=== PATIENT | female | born 1935 | race Caucasian/White ===

== ENCOUNTER 2016-05-09 09:32 | Outpatient (CLI) | payer MEDICARE | END 2016-05-09 09:33 | disposition home or self-care (01) | DX: Z00.00 Encounter for general adult medical examination without abnormal findings (principal); E55.9 Vitamin D deficiency, unspecified; E78.5 Hyperlipidemia, unspecified ==

== ENCOUNTER 2016-06-07 10:53 | Outpatient (CLI) | payer MEDICARE | END 2016-06-07 10:54 | disposition home or self-care (01) | DX: N63 Unspecified lump in breast (principal); N64.4 Mastodynia | CPT/HCPCS: 76642; G0204 ==

== ENCOUNTER 2016-06-13 08:46 | Outpatient (CLI) | payer MEDICARE ==
[2016-06-13 11:56] VITALS: BP 188/75
[2016-06-13] MEDS ORDERED: BUFFERED LIDOCAINE 10 ML SYRINGE IU ONE (14:19)
[2016-06-13] MEDS ORDERED: BUPIVACAINE 0.5%-EPI 1:200000 PF 30 ML VIAL SUBQ ONE (14:19)
--- NOTE | 2016-06-14 08:46 | Ultrasound Report ---
ULTRASOUND-GUIDED CORE NEEDLE BIOPSY OF LEFT BREAST MASS AND NODULE: 06/13/2016 CLINICAL INDICATION: A 1.4 cm nodule and a 2.5 cm mass left upper outer quadrant. FINDINGS: Informed consent was obtained. Using standard aseptic technique, both 1% buffered lidocaine and Marcaine were injected into the left breast for local anesthesia. A small deandra was made in the skin with a #11 blade. Initially , the smaller nodule was targeted, and a 12-gauge Celero vacuum-assisted device was used to obtain three specimens. A Celero marker was then placed in the nodule under ultrasound guidance. Subsequently, the 2.5 cm mass was targeted, and a 12-gauge Celero vacuum- assisted device was used to obtain three specimens. A Celero marker was then placed into the biopsy cavity under ultrasound guidance. The patient was taken to a separate mammography machine, and a two view digital mammogram was performed, documenting the markers in the expected locations, and a small postbiopsy hematoma. The wound was dressed and ice applied. The patient was observed for approximately 15 minutes, then was discharged from [facility] in good condition following instructions on wound care and obtaining biopsy results. The tissue was sent for histologic analysis. IMPRESSION: ULTRASOUND-GUIDED BIOPSY OF LEFT BREAST MASS AND NODULE. AN ADDENDUM WILL BE MADE TO THIS REPORT WHEN PATHOLOGY IS REVIEWED TO ESTABLISH CONCORDANCE. JOB #: [id number] EXT JOB #: MTDD
--- NOTE | 2016-06-19 14:58 | Mammography Report ---
PT NAME: ALEXUS OLMEDO MR#: [id number] DEP CLI/DI AGE: 80 CI DT/TM: 06/13/1612/20/2016 PCP: ADELAIDA Juarez : 1935 ATT: ADELAIDA Juarez SEX: F ORD: Cristian Li [facility] EXAM: [id number] US/BXBC ([id number]) ULTRASOUND-GUIDED CORE NEEDLE BIOPSY OF LEFT BREAST MASS AND NODULE: 06/13/2016 CLINICAL INDICATION: A 1.4 cm nodule and a 2.5 cm mass left upper outer quadrant. FINDINGS: Informed consent was obtained. Using standard aseptic technique, both 1% buffered lidocaine and Marcaine were injected into the left breast for local anesthesia. A small deandra was made in the skin with a #11 blade. Initially , the smaller nodule was targeted, and a 12-gauge Celero vacuum-assisted device was used to obtain three specimens. A Celero marker was then placed in the nodule under ultrasound guidance. Subsequently, the 2.5 cm mass was targeted, and a 12-gauge Celero vacuum- assisted device was used to obtain three specimens. A Celero marker was then placed into the biopsy cavity under ultrasound guidance. The patient was taken to a separate mammography machine, and a two view digital mammogram was performed, documenting the markers in the expected locations, and a small postbiopsy hematoma. The wound was dressed and ice applied. The patient was observed for approximately 15 minutes, then was discharged from [facility] in good condition following instructions on wound care and obtaining biopsy results. The tissue was sent for histologic analysis. IMPRESSION: ULTRASOUND-GUIDED BIOPSY OF LEFT BREAST MASS AND NODULE. AN ADDENDUM WILL BE MADE TO THIS REPORT WHEN PATHOLOGY IS REVIEWED TO ESTABLISH CONCORDANCE. JOB #: [id number] EXT JOB #: Cigarette Examiner: Reading Radiologist: Sae Cali MD Releasing Radiologist: Sae Cali MD Released Date Time: 06/14/16910 <Electronically signed by Sae Cali MD> cc: ADELAIDA Juarez ADDENDUM ADDENDUM: ULTRASOUND-GUIDED CORE NEEDLE BIOPSY OF THE LEFT BREAST OF 06/13/2016 ADDENDUM: The procedure performed by Dr. Cali. Pathology reviewed by Dr. Cali. 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 These results are concordant with the imaging findings. RECOMMENDATION: SURGICAL FOLLOWUP FOR TREATMENT PLANNING. The patient has been scheduled to obtain results from ADELAIDA Rivzi on 06/19/2016 at 9:30 a.m. END OF ADDENDUM Addendum Cigarette Examiner: SHAI MAN
== END 2016-06-13 08:47 | disposition home or self-care (01) ==
LOC: DI 08:46
PROVIDERS: ATTEND Nurse Practitioner Family
DX: C50.412 Malignant neoplasm of upper-outer quadrant of left female breast (principal); Z17.0 Estrogen receptor positive status [ER+]
CPT/HCPCS: 19083; G0206; 88305; 88360; 88374

== ENCOUNTER 2016-06-29 10:21 | Outpatient (CLI) | payer MEDICARE | END 2016-06-29 10:22 | disposition home or self-care (01) | DX: C50.919 Malignant neoplasm of unspecified site of unspecified female breast (principal) ==

== ENCOUNTER 2016-07-02 08:46 | Outpatient (CLI) | payer MEDICARE ==
[2016-07-02] MEDS ORDERED: GADOBUTROL 10 MMOL/10 ML VIAL IVP ONE (09:52)
== END 2016-07-02 08:47 | disposition home or self-care (01) ==
DX: C50.412 Malignant neoplasm of upper-outer quadrant of left female breast (principal)
CPT/HCPCS: A9585; C8908

== ENCOUNTER 2016-07-09 11:54 | Day surgery (SDC) | payer MEDICARE ==
[2016-07-09] MEDS ORDERED: LACTATED RINGERS 1,000 ML IV ONE (12:34)
[2016-07-09] MEDS ORDERED: DEXAMETHASONE 4 MG/ML VIAL IVP ONE (16:23)
[2016-07-09] MEDS ORDERED: LIDOCAINE-MPF 2% 5 ML VIAL IM ONE (16:23)
[2016-07-09] MEDS ORDERED: MIDAZOLAM 2 MG/2 ML VIAL IVP ONE (16:23)
[2016-07-09] MEDS ORDERED: fentaNYL 100 MCG/2 ML VIAL IVP ONE (16:23)
[2016-07-09] MEDS ORDERED: ONDANSETRON 4 MG/2 ML VIAL IVP ONE (16:23)
[2016-07-09] MEDS ORDERED: PROPOFOL 200 MG/20 ML VIAL IVP ONE (16:23)
[2016-07-09] MEDS ORDERED: BUPIVACAINE 0.5% PF 30 ML VIAL INFIL ONE (16:42)
[2016-07-09] MEDS ORDERED: BUPIVACAINE 0.5%-EPI 1:200000 PF 30 ML VIAL SUBQ ONE (16:47)
[2016-07-09] MEDS ORDERED: BUFFERED LIDOCAINE 10 ML SYRINGE IU ONE (16:47)
[2016-07-09] MEDS: fentaNYL 100 MCG/2 ML VIAL ONE ×4 (17:15→17:29)
[2016-07-09] MEDS ORDERED: oxyCOD/ACETAMIN 5 MG/325 MG TABLET PO ONE (17:50)
== END 2016-07-09 11:55 | disposition home or self-care (01) ==
PROC: 0HBU0ZZ Excision of Left Breast, Open Approach (ICD-10-PCS; principal; 2016-07-09 14:30)
DX: C50.912 Malignant neoplasm of unspecified site of left female breast (principal); Z88.0 Allergy status to penicillin; Z88.2 Allergy status to sulfonamides; I10 Essential (primary) hypertension; E03.9 Hypothyroidism, unspecified; Z98.49 Cataract extraction status, unspecified eye; Z87.891 Personal history of nicotine dependence; Z90.49 Acquired absence of other specified parts of digestive tract; E66.9 Obesity, unspecified; Z68.39 Body mass index [BMI] 39.0-39.9, adult
CPT/HCPCS: 19281; 19301; 76098; A9270; J7120

== ENCOUNTER 2016-09-12 14:34 | Outpatient (CLI) | payer MEDICARE | END 2016-09-12 14:35 | disposition home or self-care (01) | DX: R31.0 Gross hematuria (principal) ==

== ENCOUNTER 2016-09-14 10:28 | Outpatient (CLI) | payer MEDICARE | END 2016-09-14 10:29 | disposition home or self-care (01) | DX: R31.0 Gross hematuria (principal) ==

== ENCOUNTER 2016-10-04 09:23 | Outpatient (CLI) | payer MEDICARE ==
[2016-10-04 17:12] LABS: BASOPHILS % (AUTO) 0.6 %; EOSINOPHILS # (AUTO) 0.1 10^3/uL (0.0-0.7); EOSINOPHILS % (AUTO) 1.7 %; HCT - HEMATOCRIT 39.9 % (37.0-47.0); HGB - HEMOGLOBIN 13.3 g/dL (12.0-16.0); LYMPHOCYTES # (AUTO) 1.3 10^3/uL (1.5-3.5); LYMPHOCYTES % (AUTO) 24.4 %; MEAN CORPUSCULAR HGB CONC 33.3 g/dL (32.0-36.0); MEAN CORPUSCULAR VOLUME 93.3 fL (81.0-99.0); MEAN PLATELET VOLUME 8.6 fL (7.9-10.8); MONOCYTES # (AUTO) 0.4 10^3/uL (0.0-1.0); MONOCYTES % (AUTO) 6.8 %; NEUTROPHILS # (AUTO) 3.6 10^3/uL (1.5-6.6); NEUTROPHILS % (AUTO) 66.5 %; NUCLEATED RED BLOOD CELLS AUTO 0.2 /100WBC; RED BLOOD COUNT 4.28 10^6/uL (4.20-5.40); RED CELL DISTRIBUTION WIDTH 13.6 % (12.0-15.0); UNCORRECTED WHITE BLOOD COUNT 5.4 x10^3/uL; WHITE BLOOD COUNT 5.4 x10^3/uL (4.8-10.8)
[2016-10-04 17:26] LABS: ALBUMIN/GLOBULIN RATIO 1.2 (1.0-2.2); BILIRUBIN,TOTAL 0.5 mg/dL (0.2-1.0); CALCIUM 9.3 mg/dL (8.5-10.3); CREATININE 0.9 mg/dL (0.4-1.0); POTASSIUM 3.4 mmol/L (3.5-5.0); URIC ACID 6.7 mg/dL (2.6-7.2)
== END 2016-10-04 09:24 | disposition home or self-care (01) ==
LOC: LAB.F 09:23
PROVIDERS: ATTEND Nurse Practitioner Family
DX: M10.9 Gout, unspecified (principal)
CPT/HCPCS: 36415; 80053; 84550; 85025

== ENCOUNTER 2016-11-07 07:17 | Outpatient (CLI) | payer MEDICARE | END 2016-11-07 07:18 | disposition home or self-care (01) | LOC: DI 07:17 | PROVIDERS: ATTEND Nurse Practitioner Family | DX: Z53.9 Procedure and treatment not carried out, unspecified reason (principal) ==

== ENCOUNTER 2016-12-24 10:40 | Outpatient (CLI) | payer MEDICARE ==
[2016-12-24 18:04] LABS: EOSINOPHILS # (AUTO) 0.1 10^3/uL (0.0-0.7); EOSINOPHILS % (AUTO) 1.6 %; HCT - HEMATOCRIT 42.5 % (37.0-47.0); HGB - HEMOGLOBIN 14.2 g/dL (12.0-16.0); LYMPHOCYTES # (AUTO) 1.9 10^3/uL (1.5-3.5); LYMPHOCYTES % (AUTO) 36.4 %; MEAN CORPUSCULAR HEMOGLOBIN 30.3 pg (27.0-31.0); MEAN CORPUSCULAR HGB CONC 33.3 g/dL (32.0-36.0); MEAN CORPUSCULAR VOLUME 90.9 fL (81.0-99.0); MEAN PLATELET VOLUME 8.7 fL (7.9-10.8); MONOCYTES # (AUTO) 0.4 10^3/uL (0.0-1.0); NEUTROPHILS # (AUTO) 2.8 10^3/uL (1.5-6.6); NUCLEATED RED BLOOD CELLS AUTO 0.1 /100WBC; RED BLOOD COUNT 4.67 10^6/uL (4.20-5.40); RED CELL DISTRIBUTION WIDTH 13.7 % (12.0-15.0); UNCORRECTED WHITE BLOOD COUNT 5.2 x10^3/uL; WHITE BLOOD COUNT 5.2 x10^3/uL (4.8-10.8)
[2016-12-24 19:09] LABS: ALBUMIN/GLOBULIN RATIO 1.3 (1.0-2.2); BILIRUBIN,TOTAL 0.8 mg/dL (0.2-1.0); BUN - BLOOD UREA NITROGEN 20 mg/dL (6-20); CALCIUM 9.5 mg/dL (8.5-10.3); CARBON DIOXIDE - CO2 28 mmol/L (21-32); CHLORIDE 106 mmol/L (101-111); CREATININE 0.9 mg/dL (0.4-1.0); GFR - MDRD 60 (>89); GLUCOSE 92 mg/dL (70-100); POTASSIUM 3.4 mmol/L (3.5-5.0); SODIUM 142 mmol/L (135-145); TOTAL PROTEIN 7.4 g/dL (6.7-8.2)
[2016-12-24 19:34] LABS: THYROID STIMULATING HORMONE < 0.08 uIU/mL (0.34-5.60)
== END 2016-12-24 10:41 | disposition home or self-care (01) ==
LOC: LAB.F 10:40
PROVIDERS: ATTEND Physician Assistant Medical
DX: I10 Essential (primary) hypertension (principal)
CPT/HCPCS: 36415; 80053; 84439; 84443; 84481; 85025

== ENCOUNTER → 2016-12-31 | Outpatient (CLI) | payer MEDICARE ==
[2016-12-31 11:03] LABS: ALBUMIN/GLOBULIN RATIO 1.2 (1.0-2.2); BILIRUBIN,TOTAL 0.8 mg/dL (0.2-1.0); CALCIUM 9.7 mg/dL (8.5-10.3); CREATININE 0.8 mg/dL (0.4-1.0); POTASSIUM 4.3 mmol/L (3.5-5.0)
== END ==
LOC: LAB.F 08:00
PROVIDERS: ATTEND Physician Assistant Medical
DX: E87.6 Hypokalemia (principal); Z79.899 Other long term (current) drug therapy
CPT/HCPCS: 36415; 80053; 82565

== ENCOUNTER 2017-02-18 08:00 | Outpatient (CLI) | payer MEDICARE | END 2017-02-18 08:01 | disposition home or self-care (01) | LOC: LAB.F 08:00 | PROVIDERS: ATTEND Physician Assistant Medical | DX: J11.1 Influenza due to unidentified influenza virus with other respiratory manifestations (principal) | CPT/HCPCS: 87275; 87276 ==

== ENCOUNTER 2017-04-30 08:47 | Outpatient (CLI) | payer MEDICARE ==
--- NOTE | 2017-04-30 17:47 | Mammography Report ---
DIAGNOSTIC BILATERAL DIGITAL MAMMOGRAM: 04/30/2017 CLINICAL INDICATION: History of left breast cancer status post lumpectomy. TECHNIQUE: Bilateral CC and MLO views, left true lateral and spot magnification views. COMPARISON: 07/09/2016, 06/13/2016, 06/07/2016, 02/12/2007. FINDINGS: The breasts again demonstrate scattered fibroglandular densities bilaterally. Coarse, typically benign calcifications are present. Small circumscribed nodules are stable bilaterally. Postoperative changes in the left upper outer quadrant are present, at the site of previously diagnosed breast cancer. No suspicious masses, clustered microcalcifications, or regions of architectural distortion are identified. IMPRESSION: Probable benign postoperative changes in the left breast. RECOMMENDATIONS: Diagnostic left mammogram in 6 months, to assure stability. BIRADS category 3 - Probable benign findings. STANDARD QUALIFYING STATEMENTS 1. This examination was reviewed with the aid of Computer-Aided Detection (CAD). 1. A negative x-ray report should not delay biopsy if a dominant or clinically suspicious mass are present. Consider surgical consultation if warranted. More than 5% of cancers are not identified by x-ray. 2. Dense breasts may obscure an underlying neoplasm. TD: 04/30/2017 18:36 MAGDA
== END 2017-04-30 08:48 | disposition home or self-care (01) ==
LOC: DI 08:47
PROVIDERS: ATTEND Internal Medicine Hematology & Oncology
DX: C50.412 Malignant neoplasm of upper-outer quadrant of left female breast (principal)
CPT/HCPCS: 77066

== ENCOUNTER 2017-10-14 12:37 | Outpatient (CLI) | payer MEDICARE ==
--- NOTE | 2017-10-14 15:45 | Mammography Report ---
DIAGNOSTIC LEFT MAMMOGRAM: 10/14/2017 CLINICAL INDICATION: Followup of left breast cancer, status post lumpectomy. COMPARISON: 04/30/2017, 07/09/2016, 06/13/2016, 06/07/2016, 02/12/2007. TECHNIQUE: Left CC, MLO, true lateral, spot magnification views. FINDINGS The left breast again demonstrates scattered fibroglandular densities. Postoperative and posttreatment changes are noted. Coarse and punctate, typically benign calcifications are present. No suspicious masses, clustered microcalcifications , or regions of architectural distortion are identified. IMPRESSION: PROBABLE BENIGN POSTOPERATIVE AND POSTTREATMENT CHANGES. RECOMMENDATIONS: Diagnostic bilateral mammogram in 6 months, to assure stability. BIRADS CATEGORY 3 - PROBABLE BENIGN FINDINGS. STANDARD QUALIFYING STATEMENTS 1. This examination was reviewed with the aid of Computer-Aided Detection ( CAD). 2. A negative or benign imaging report should not delay biopsy if clinically suspicious findings are present. Consider surgical consultation if warranted. More than 5% of cancers are not identified by imaging. 3. Dense breasts may obscure an underlying neoplasm. TD: 10/14/2017 14:08 MTDBella
== END 2017-10-14 12:38 | disposition home or self-care (01) ==
LOC: DI 12:37
PROVIDERS: ATTEND Internal Medicine Hematology & Oncology
DX: C50.412 Malignant neoplasm of upper-outer quadrant of left female breast (principal)

== ENCOUNTER 2018-07-08 13:35 | Outpatient (CLI) | payer MEDICARE ==
--- NOTE | 2018-07-09 10:42 | XRAY Report ---
Reason: ANKLE JOINT PAIN, RIGHT Procedure Date: 07/08/2018 Accession Number: [id number] / [id number] Procedure: XR - Ankle 3 View RT CPT Code: FULL RESULT: EXAM: RIGHT ANKLE RADIOGRAPHY EXAM DATE: 07/08/2018 02:26 PM. CLINICAL HISTORY: Ankle joint pain, right. COMPARISON: None. TECHNIQUE: 3 views. FINDINGS: Bones: Posterior calcaneal spurring, mild inferior calcaneal spurring and os trigonum are noted. No fracture is seen. Joints: The ankle mortise is preserved. No definite joint effusion is seen. Soft Tissues: There is soft tissue swelling about the ankle. IMPRESSION: Soft tissue swelling without fracture or dislocation identified. RADIA
== END 2018-07-08 13:36 | disposition home or self-care (01) ==
LOC: DI 13:35
PROVIDERS: ATTEND Physician Assistant Medical
DX: M25.571 Pain in right ankle and joints of right foot (principal); R22.41 Localized swelling, mass and lump, right lower limb

== ENCOUNTER 2018-07-15 13:48 | Outpatient (CLI) | payer MEDICARE ==
[2018-07-17 08:48] LABS: ALBUMIN/GLOBULIN RATIO 1.1 (1.0-2.2); BILIRUBIN,TOTAL 0.9 mg/dL (0.2-1.0); CALCIUM 9.4 mg/dL (8.5-10.3); CREATININE 0.8 mg/dL (0.4-1.0); TOTAL PROTEIN 7.8 g/dL (6.7-8.2)
== END 2018-07-15 13:49 | disposition home or self-care (01) ==
LOC: LAB.F 13:48
PROVIDERS: ATTEND Physician Assistant Medical
DX: Z51.81 Encounter for therapeutic drug level monitoring (principal); E03.9 Hypothyroidism, unspecified
CPT/HCPCS: 36415; 80053; 84443

== ENCOUNTER 2018-08-04 08:55 | Outpatient (CLI) | payer MEDICARE ==
--- NOTE | 2018-08-04 13:11 | Mammography Report ---
Reason: 6 MO F/U - LT BREAST CA Procedure Date: 08/04/2018 Accession Number: [id number] / [id number] Procedure: FRANCISCO - Diagnostic Dig Bilat CPT Code: FULL RESULT: EXAM: Diagnostic Dig Bilat DATE: 08/04/2018 10:07 AM CLINICAL HISTORY: Personal history of treated left breast cancer in July 2016 status post lumpectomy for post lumpectomy surveillance. No reported family history of breast cancer. TECHNIQUE: (B) - Bilateral Bilateral CC and MLO views were obtained. COMPARISON: 10/14/2017 through 06/07/2016 FINDINGS: Left breast: There are stable post lumpectomy changes from the posterior upper outer breast. There is stable moderate skin thickening and mild trabecular thickening/edema since the most recent comparison exam, consistent with post treatment changes. No suspicious masses, calcifications or areas of nonoperative distortion. Right breast: No suspicious masses, clustered microcalcifications, or regions of architectural distortion are identified. PARENCHYMAL PATTERN: (A) - The breasts demonstrate scattered fibroglandular densities bilaterally. IMPRESSION: Left breast: Expected post lumpectomy and post treatment changes under postlumpectomy surveillance protocol. Benign. BI-RADS Category 2. Recommend diagnostic mammography in one year to continue surveillance. This timing will coincide with contralateral screening. Right breast: Negative. BI-RADS Category 1. Recommend annual screening mammography. RECOMMENDATION: (12MOS) - Recommend 12 month follow-up exam. BI-RADS CATEGORY: (2) - Benign Findings STANDARD QUALIFYING STATEMENTS: 1. This examination was not reviewed with the aid of Computer-Aided Detection (CAD). 2. A negative or benign imaging report should not preclude biopsy if clinically suspicious findings are present. 3. Dense breasts may obscure an underlying neoplasm. 4. This examination was reviewed with the aid of 3D breast imaging (tomosynthesis).
== END 2018-08-04 08:56 | disposition home or self-care (01) ==
LOC: DI 08:55
PROVIDERS: ATTEND Internal Medicine Hematology & Oncology
DX: R92.8 Other abnormal and inconclusive findings on diagnostic imaging of breast (principal); Z85.3 Personal history of malignant neoplasm of breast
CPT/HCPCS: 77062; 77066

== ENCOUNTER 2018-09-10 12:29 | Emergency (ER) | payer MEDICARE ==
[2018-09-10 12:45] VITALS: BP 199/99
--- NOTE | 2018-09-10 13:00 | ED Physician Documentation ---
History of Present Illness - Stated complaint Stated Complaint: CHEST DISCOMFORT/RAPID HR - Chief complaint Chief Complaint: Cardiac - History obtained from History obtained from: Patient - History of Present Illness Timing: Yesterday Pain level max: 2 Pain level now: 1 - Additonal information Additional information: states dull ache in chest since yesterday and occasionally feels her heart pounding. Worse lying down. nothing makes it better. No dyspnea. no vomiting. No dizziness. 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: section, Tubal ligation HEENT: Cataracts - Present Medications Home Medications: Ambulatory Orders Medication Instructions Recorded Confirmed Cholecalciferol [Vitamin D3] 5,000 unit PO DAILY 07/09/16 09/10/18 hydroCHLOROthiazide 12.5 mg PO DAILY 07/09/16 09/10/18 [Hydrochlorothiazide] Losartan [Cozaar] 50 mg PO DAILY 08/19/18 09/10/18 Thyroid,Pork [[place] Thyroid] 60 mg PO DAILY 08/19/18 09/10/18 Metoprolol Succinate 25 mg PO DAILY #30 tab.er.24h 09/10/18 - Allergies Allergies/Adverse Reactions: Allergies Allergy/AdvReac Type Severity Reaction Status Date / Time Penicillins Allergy Rash Verified 09/10/18 12:45 Sulfa (Sulfonamide Allergy Unknown Verified 09/10/18 12:45 Antibiotics) PD ED PE NORMAL - Vitals Vital signs reviewed: Yes - General General: Alert and oriented X 3, No acute distress - HEENT HEENT: Moist mucous membranes - Neck Neck: Supple, no meningeal sign - Cardiac Cardiac: RRR, Strong equal pulses, Other (III/ holosystolic murmur) - Respiratory Respiratory: No respiratory distress, Clear bilaterally - Abdomen Abdomen: Soft, Non tender, Non distended - Derm Derm: Warm and dry - Extremities Extremities: No edema - Neuro Neuro: Alert and oriented X 3 Results - Vitals Vitals: Vital Signs - 24 hr 09/10/18 12:43 Temperature 36.4 C L Heart Rate 106 H Respiratory 23 Rate Blood Pressure 199/99 H O2 Saturation 98 Oxygen O2 Source Room air - EKG (time done) 1235 Rate: Rate (enter#) (93) Rhythm: NSR [place]: Anterior hemiblock (LAFB) Intervals: Other (short [place]) QRS: Normal Ischemia: Normal ST segments Compare to prior EKG: Old EKG unavailable - Labs Labs: Laboratory Tests 09/10/18 09/10/18 09/10/18 12:35 12:45 12:45 WBC 7.5 RBC 4.33 Hgb 13.4 Hct 40.0 MCV 92.4 MCH 30.9 MCHC 33.4 RDW 14.1 Plt Count 216 MPV 8.0 Neut # (Auto) 5.0 Lymph # (Auto) 1.7 Dade # (Auto) 0.6 Eos # (Auto) 0.1 Baso # (Auto) 0.1 Absolute Nucleated RBC 0.00 Nucleated RBC % 0.1 Sodium 138 Potassium 3.8 Chloride 101 Carbon Dioxide 28 Anion Gap 9.0 BUN 23 H Creatinine 0.9 Estimated GFR (MDRD) 60 L Glucose 116 H Calcium 9.5 Total Bilirubin 0.6 AST 23 ALT 19 Alkaline Phosphatase 84 Troponin I Total Protein 7.7 Albumin 3.7 Globulin 4.0 Albumin/Globulin Ratio 0.9 L Lipase 61 H Urine Color YELLOW Urine Clarity CLEAR Urine pH 5.5 Ur Specific [place] <=1.005 Urine Protein NEGATIVE Urine Glucose (UA) NEGATIVE Urine Ketones NEGATIVE Urine Occult Blood TRACE-INTA Urine Nitrite NEGATIVE Urine Bilirubin NEGATIVE Urine Urobilinogen 0.2 (NORMAL) Ur Leukocyte Esterase NEGATIVE Ur Microscopic Review NOT INDICATED Urine Culture Comments NOT INDICATED 09/10/18 12:45 WBC RBC Hgb Hct MCV MCH MCHC RDW Plt Count MPV Neut # (Auto) Lymph # (Auto) Dade # (Auto) Eos # (Auto) Baso # (Auto) Absolute Nucleated RBC Nucleated RBC % Sodium Potassium Chloride Carbon Dioxide Anion Gap BUN Creatinine Estimated GFR (MDRD) Glucose Calcium Total Bilirubin AST ALT Alkaline Phosphatase Troponin I < 0.04 Total Protein Albumin Globulin Albumin/Globulin Ratio Lipase Urine Color Urine Clarity Urine pH Ur Specific [place] Urine Protein Urine Glucose (UA) Urine Ketones Urine Occult Blood Urine Nitrite Urine Bilirubin Urine Urobilinogen Ur Leukocyte Esterase Ur Microscopic Review Urine Culture Comments - Rads (name of study) cxr Radiology: Prelim report reviewed, EMP read contemporaneously, See rad report (Borderline cardiomegaly. ) PD MEDICAL DECISION MAKING - ED course Complexity details: reviewed results, re-evaluated patient, considered differential (No ST elevation GA, no aortic dissection, no PE, no tension pneumothorax, no aortic aneurysm), d/w patient, d/w family ED course: 83-year-old female with bigeminy on the monitor when she is symptomatic. This lasts for a few beats and then resolves. No acute laboratory findings. Will place on a low-dose beta-live for home if her symptoms continue. She is well-appearing, nontoxic. Elevated blood pressure here, should tolerate a low- dose beta-live well. No evidence of acute coronary syndrome. Patient counseled regarding signs and symptoms for which I believe and urgent re-evalu ation would be necessary. Patient with good understanding of and agreement to plan and is comfortable going home at this time This document was made in part using voice recognition software. While efforts are made to proofread this document, sound alike and grammatical errors may occur. Departure - Departure Disposition: Home, Self Care Clinical Impression: PVC (premature ventricular contraction), Bigeminy Condition: Good Instructions: Premature Ventricular Contract About Follow-Up: Susan Johnson PA-C [Primary Care Provider] - Within 1 week Prescriptions: Metoprolol Succinate 25 mg PO DAILY #30 tab.er.24h Comments: Return if you worsen. Follow up with your doctor for further care. If this continues, you can start the metoprolol. You are having premature ventricular contractions and occasional bigeminy.
[2018-09-10 13:04] LABS: BASOPHILS # (AUTO) 0.1 10^3/uL (0.0-0.1); BASOPHILS % (AUTO) 0.9 %; EOSINOPHILS # (AUTO) 0.1 10^3/uL (0.0-0.7); EOSINOPHILS % (AUTO) 1.8 %; HGB - HEMOGLOBIN 13.4 g/dL (12.0-16.0); LYMPHOCYTES # (AUTO) 1.7 10^3/uL (1.5-3.5); LYMPHOCYTES % (AUTO) 23.1 %; MEAN CORPUSCULAR HEMOGLOBIN 30.9 pg (27.0-31.0); MEAN CORPUSCULAR HGB CONC 33.4 g/dL (32.0-36.0); MEAN CORPUSCULAR VOLUME 92.4 fL (81.0-99.0); MONOCYTES # (AUTO) 0.6 10^3/uL (0.0-1.0); MONOCYTES % (AUTO) 7.8 %; NEUTROPHILS % (AUTO) 66.4 %; PLT - PLATELET COUNT 216 10^3/uL (130-450); RED BLOOD COUNT 4.33 10^6/uL (4.20-5.40); RED CELL DISTRIBUTION WIDTH 14.1 % (12.0-15.0); WHITE BLOOD COUNT 7.5 x10^3/uL (4.8-10.8)
[2018-09-10 13:12] LABS: ALBUMIN 3.7 g/dL (3.2-5.5); ALBUMIN/GLOBULIN RATIO 0.9 (1.0-2.2); BILIRUBIN,TOTAL 0.6 mg/dL (0.2-1.0); CALCIUM 9.5 mg/dL (8.5-10.3); CREATININE 0.9 mg/dL (0.4-1.0); TOTAL PROTEIN 7.7 g/dL (6.7-8.2)
[2018-09-10 13:15] LABS: BILIRUBIN,URINE NEGATIVE (NEGATIVE); GLUCOSE, URINE (UA) NEGATIVE (NEGATIVE); KETONES,URINE (UA) NEGATIVE (NEGATIVE); LEUKOCYTE ESTERASE, URINE NEGATIVE (NEGATIVE); NITRITE,URINE NEGATIVE (NEGATIVE); OCCULT BLOOD,URINE TRACE-INTA (NEGATIVE); PH,URINE 5.5 PH (5.0-7.5); PROTEIN,URINE NEGATIVE (NEGATIVE); UROBILINOGEN,URINE 0.2 (NORMAL) E.U./dL (NORMAL)
[2018-09-10 13:16] LABS: CLARITY,URINE CLEAR (CLEAR)
--- NOTE | 2018-09-10 13:23 | XRAY Report ---
Reason: Chest Pain Procedure Date: 09/10/2018 Accession Number: [id number] / [id number] Procedure: XR - Chest 1 View X-Ray CPT Code: 40507 FULL RESULT: EXAM: CHEST RADIOGRAPHY EXAM DATE: 09/10/2018 12:58 PM. CLINICAL HISTORY: Chest pain and palpitations since yesterday. COMPARISON: 06/23/2015. TECHNIQUE: 1 view. FINDINGS: Lungs/Pleura: No focal opacities evident. No pleural effusion. No pneumothorax. Mediastinum: New borderline cardiomegaly. No mediastinal shift. Other: None. IMPRESSION: Borderline cardiomegaly. RADIA
== END 2018-09-10 14:10 | disposition home or self-care (01) ==
LOC: ED 12:29
DX: I49.3 Ventricular premature depolarization (principal); R00.8 Other abnormalities of heart beat; I44.4 Left anterior fascicular block; I10 Essential (primary) hypertension; E03.9 Hypothyroidism, unspecified
CPT/HCPCS: 36415; 71045; 80053; 81001; 81003; 83690; 84484; 85025; 87086; 93005; 99283; 99284

== ENCOUNTER 2018-09-15 10:40 | Outpatient (CLI) | payer MEDICARE ==
[2018-09-15 18:10] LABS: THYROID STIMULATING HORMONE 3.28 uIU/mL (0.34-5.60)
[2018-09-15 18:12] LABS: FREE T4 (FREE THYROXINE) 0.75 ng/dL (0.58-1.64)
== END 2018-09-15 10:41 | disposition home or self-care (01) ==
LOC: LAB.F 10:40
PROVIDERS: ATTEND Physician Assistant Medical
DX: E03.9 Hypothyroidism, unspecified (principal)
CPT/HCPCS: 36415; 84439; 84443; 84481

== ENCOUNTER 2018-10-24 10:27 | Outpatient (CLI) | payer MEDICARE | END 2018-10-24 10:28 | disposition home or self-care (01) | LOC: DI 10:27 | PROVIDERS: ATTEND Internal Medicine Cardiovascular Disease | DX: I49.3 Ventricular premature depolarization (principal); I11.9 Hypertensive heart disease without heart failure | CPT/HCPCS: 93306 ==

== ENCOUNTER 2018-11-24 11:02 | Outpatient (CLI) | payer MEDICARE | END 2018-11-24 11:03 | disposition home or self-care (01) | LOC: LAB.S 11:02 | PROVIDERS: ATTEND Physician Assistant Medical | DX: E03.9 Hypothyroidism, unspecified (principal) | CPT/HCPCS: 84443 ==

== ENCOUNTER 2019-02-09 16:49 | Emergency (ER) | payer MEDICARE ==
[2019-02-09 16:57] VITALS: BP 153/107
--- NOTE | 2019-02-09 17:33 | ED Physician Documentation ---
PD HPI ANIMAL BITE - Stated complaint Stated Complaint: DOG SCRATCH RT HAND - Chief complaint Chief Complaint: Laceration - History obtained from History obtained from: Patient, Family - History of Present Illness Location of injury(ies): Right hand (dorsum of the hand, laceration from dog scratch that had just gotten anxious.) Details of the event: Dog, Scratch, Pet animal, Immunized, Provoked (dog was playing and wanted attention) Timing - onset: Today Timing - details: Abrupt onset Improved by: Rest Worsened by: Palpating. 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 HEENT: Cataracts - Present Medications Home Medications: Ambulatory Orders Medication Instructions Recorded Confirmed Cholecalciferol [Vitamin D3] 5,000 unit PO DAILY 07/09/16 11/25/18 hydroCHLOROthiazide 12.5 mg PO DAILY 07/09/16 11/25/18 [Hydrochlorothiazide] Losartan [Cozaar] 50 mg PO DAILY 08/19/18 11/25/18 Metoprolol Succinate 25 mg PO DAILY #30 tab.er.24h 09/10/18 11/25/18 Thyroid,Pork [Nature-Throid] 60 mg PO DAILY 11/25/18 11/25/18 - Allergies Allergies/Adverse Reactions: Allergies Allergy/AdvReac Type Severity Reaction Status Date / Time Penicillins Allergy Rash Verified 02/09/19 16:54 Sulfa (Sulfonamide Allergy Unknown Verified 02/09/19 16:54 Antibiotics) - Social History Does the pt smoke?: No Smoking Status: Never smoker Does the pt drink ETOH?: No Does the pt have substance abuse?: No PD ED PE NORMAL - Vitals Vital signs reviewed: Yes - General General: Alert and oriented X 3, No acute distress, Well developed/nourished - Derm Derm: Normal color, Warm and dry - Extremities Extremities: Other (dorsum right hand with v-shaped lac 2 cm down to fatty tissue, but no deep structures uncovered. No FB. ) - Neuro Neuro: Alert and oriented X 3, No motor deficit, No sensory deficit, Normal speech Results - Vitals Vitals: Oxygen O2 Source Room air Procedures - Laceration (location) right dorsum hand Length in cm: 2 Wound type: Flap, Into subcut fat, Clean. No: Into muscle Neurovascular status: Sensory intact, Motor intact, Vascular intact Tendon involvement: Tendon intact Anesthesia: Lidocaine 1% with epi Wound Preparation: Irrigated copiously NS Skin layer closure: Nylon, Running, Size #-0 - enter number (4) Other: Patient tolerated well, No complications, Neurovascular intact, Dressing applied, Tetanus UTD Complexity: Simple Departure - Departure Disposition: 01 Home, Self Care Clinical Impression: Dog scratch Hand laceration Qualifiers: Encounter type: initial encounter Foreign body presence: without foreign body Laterality: right Qualified Code(s): S61.411A - Laceration without foreign body of right hand, initial encounter Condition: Stable Record reviewed to determine appropriate education?: Yes Instructions: ED Laceration Hand Follow-Up: WESTON COLINDRES MD [Primary Care Provider] - Comments: It is okay to wash and shower. Clean off the wound twice a day with soap and water, or peroxide and water. Apply some antibiotic ointment to it to keep it moist. Also to watch for signs of infection such as purulence, redness or increasing pain. Return to your primary care or the ER at the specified time for suture removal. Suture removal 8 to 10 days. Tylenol or ibuprofen if needed for pains. Regular activity of the hand is okay. Discharge Date/Time: 02/09/19 18:20
== END 2019-02-09 18:20 | disposition home or self-care (01) ==
LOC: ED 16:49
DX: S61.411A Laceration without foreign body of right hand, initial encounter (principal); W54.8XXA Other contact with dog, initial encounter; I10 Essential (primary) hypertension
CPT/HCPCS: 12001; 99282

== ENCOUNTER 2020-05-15 13:00 | Outpatient (CLI) | payer MEDICARE ==
[2020-05-15 18:10] LABS: CREATININE 0.9 mg/dL (0.4-1.0); POTASSIUM 3.8 mmol/L (3.5-5.0)
[2020-05-15 18:13] LABS: BILIRUBIN,URINE NEGATIVE (NEGATIVE); GLUCOSE, URINE (UA) NEGATIVE (NEGATIVE); KETONES,URINE (UA) NEGATIVE (NEGATIVE); LEUKOCYTE ESTERASE, URINE NEGATIVE (NEGATIVE); NITRITE,URINE NEGATIVE (NEGATIVE); OCCULT BLOOD,URINE LARGE (NEGATIVE); PROTEIN,URINE NEGATIVE (NEGATIVE); UROBILINOGEN,URINE 0.2 (NORMAL) E.U./dL (NORMAL)
[2020-05-15 18:18] LABS: CLARITY,URINE CLEAR (CLEAR)
[2020-05-15 19:30] LABS: WBC,URINE 0-3 /HPF (0-5)
[2020-05-15 19:31] LABS: BACTERIA,URINE Moderate /HPF (None Seen); SQUAMOUS EPITHELIAL CELL,UR MANY Squamous (<= Few)
== END 2020-05-15 13:01 | disposition home or self-care (01) ==
LOC: LAB.S 13:00
PROVIDERS: ATTEND Family Medicine
DX: R31.0 Gross hematuria (principal); Z51.81 Encounter for therapeutic drug level monitoring
CPT/HCPCS: 36415; 81001; 82565; 84132; 84295; 84443; 87086

== ENCOUNTER 2020-05-23 09:47 | Outpatient (CLI) | payer MEDICARE ==
--- NOTE | 2020-05-24 09:42 | Mammography Report ---
BILATERAL DIGITAL DIAGNOSTIC MAMMOGRAM 3D/2D: 05/23/2020 CLINICAL: Post left lumpectomy. Comparison is made to exams dated: 08/04/2018 mammogram, 10/14/2017 mammogram, 04/30/2017 mammogram, an d 07/09/2016 mammogram - [facility]. There are scattered fibroglandular elements in both breasts. The left breast has post-operative findings. There is diffuse skin thickening of the left breast dee dee t is more prominent. There is diffuse increased breast parenchymal trabecular thickening. There also are diffuse calcifications in the left breast that are not significantly changed. There is a new oval equal density lymph node with uniform cortical thickening in the left axillary t ail. No other significant masses, calcifications, or other findings are seen in either breast. IMPRESSION: INCOMPLETE: NEEDS ADDITIONAL IMAGING EVALUATION The new oval equal density thickened axillary lymph node as well as diffuse skin and trabecular thick ening of the left breast with uniform cortical thickening is indeterminate. An ultrasound is recommended for further evaluation and is scheduled to immediately follow this exami nation. This exam was interpreted at Station ID: [id number]. NOTE: For mammograms, a report in lay terms will be sent to the patient. Approximately 15% of breast malignancies will not be visualized mammographically. In the management of a palpable breast mass, a negative mammogram must not discourage biopsy of a clinically suspicious lesion. Electronically Signed By: Berny Cobos M.D. aty/:05/23/2020 12:51:15 ACR BI-RADS Category 0: Incomplete 3340F PARENCHYMAL PATTERN: (A) - The breast(s) demonstrate(s) scattered fibroglandular densities. BI-RADS CATEGORY: (0) - 0 Ultrasound [id number] Immediate follow-up LATERALITY: (L)
--- NOTE | 2020-05-24 09:42 | Ultrasound Report ---
LIMITED ULTRASOUND OF LEFT BREAST: 05/23/2020 CLINICAL: Post left lumpectomy. Comparison is made to exams dated: 08/04/2018 mammogram, 10/14/2017 mammogram, 04/30/2017 mammogram, 07/09/2016 mammogram, 07/02/2016 breast MRI, and 06/13/2016 ultrasound - [facility]. Color flow and real-time ultrasound of the left breast four quadrants and retroareolar regions were performed. Bajwa scale images of the real-time examination were reviewed. There is diffuse skin thickening of the left breast with moderate subcutaneous soft tissue edema. The re is no focal fluid collection or suspicious mass lesion. There is a 0.8 cm x 0.4 cm x 0.7 cm irregular mass in the left axillary tail. This irregular mass is hypoechoic with an echogenic boundary. This correlates with mammography findings. Color flow imagi ng demonstrates that there is an adjacent vascularity. There also are multiple irregular, enlarged lymph nodes with eccentric cortical thickening in the lef t axillary tail. These irregular lymph nodes are hypoechoic. Color flow imaging demonstrates that t here is vascularity present. IMPRESSION: SUSPICIOUS OF MALIGNANCY The 0.8 cm x 0.4 cm x 0.7 cm irregular mass with apparent echogenic halo in the left axillary tail i s suspicious of malignancy. An ultrasound guided biopsy is recommended. The multiple enlarged, irregular lymph nodes with eccentric cortical thickening in the left axillary tail are consistent with possible lymphadenopathy, and are suspicious of malignancy. An ultrasound g uided biopsy is recommended. Findings and recommendations were discussed with the patient during today's examination by Dr. Hurst on. This exam was interpreted at Station ID: [id number]. Electronically Signed By: Berny Cobos M.D. aty/:05/24/2020 09:39:06 Ultrasound BI-RADS: 4 Suspicious for malignancy BI-RADS CATEGORY: (4) - 4 RECOMMENDATION: (ADDMAM) - Recommend additional mammographic views. no recall LATERALITY: (B)
== END 2020-05-23 09:48 | disposition home or self-care (01) ==
LOC: DI 09:47
PROVIDERS: ATTEND Internal Medicine Hematology & Oncology
DX: Z08 Encounter for follow-up examination after completed treatment for malignant neoplasm (principal); R92.8 Other abnormal and inconclusive findings on diagnostic imaging of breast

== ENCOUNTER 2020-05-31 12:32 | Outpatient (CLI) | payer MEDICARE ==
[~2020-05-31 12:32] MED LIST: BUFFERED LIDOCAINE 10 ML SYRINGE ONE
[2020-05-31] MEDS: BUFFERED LIDOCAINE 10 ML SYRINGE IU ONE ×2 (15:04→15:05)
--- NOTE | 2020-06-02 09:01 | Mammography Report ---
UNILATERAL LEFT DIGITAL DIAGNOSTIC MAMMOGRAM 3D/2D: 05/31/2020 CLINICAL: Post left breast ultrasound biopsy clip placement imaging. Comparison is made to exams dated: 05/23/2020 mammogram, 08/04/2018 mammogram, 10/14/2017 mammogram, and 04/30/2017 mammogram - [facility]. There are scattered fibroglandular elements in left breast. There is a marker clip in the appropriate position in the left axillary tail. The biopsy marker for left axillary lymph node is not visualized in the field of view. IMPRESSION: POST PROCEDURE MAMMOGRAM FOR MARKER PLACEMENT There was a successful marker clip placement in the left axillary tail mass. Biopsy marker for left a xillary lymph node biopsy is not visualized in the field of view. This exam was interpreted at Station ID: [id number]. NOTE: For mammograms, a report in lay terms will be sent to the patient. Approximately 15% of breast malignancies will not be visualized mammographically. In the management of a palpable breast mass, a negative mammogram must not discourage biopsy of a clinically suspicious lesion. Electronically Signed By: Berny Cobos M.D. aty/:05/31/2020 19:36:49 ACR BI-RADS Category Post-procedure mammogram for marker placement PARENCHYMAL PATTERN: (A) - The breast(s) demonstrate(s) scattered fibroglandular densities. BI-RADS CATEGORY: () - Unspecified - other recall n/a LATERALITY: (B)
--- NOTE | 2020-06-06 11:12 | Ultrasound Report ---
ULTRASOUND GUIDED BIOPSY LEFT BREAST USING VACUUM DEVICE WITH MARKING DEVICE INSERTED AND POST DIGITA L MAMMOGRAPHIC IMAGIN05/31/2020 CLINICAL: Left axillary node biopsy. PATIENT CONSENT: Risks (minor bleeding, infection, vasovagal reaction and repeat procedure), benefits and alternatives were explained to the patient and written informed consent was obtained. Correlation is made to exams dated: 05/31/2020 mammogram, 05/23/2020 ultrasound, 05/23/2020 mammogram, 08/04/2018 mammogram, 10/14/2017 mammogram, and 04/30/2017 mammogram - [facility]. An ultrasound guided biopsy using real-time ultrasound was performed for the 0.8 cm x 0.4 cm x 0.7 cm mass located in the left axillary tail. This was described on the previous ultrasound report. The skin was prepped in the usual manner. Local anesthetic was administered to the access site. A s kin deandra was made in the breast. The abnormality was approached from the lateral aspect. A 12 gauge biopsy needle was placed adjacent to the abnormality under ultrasound guidance. Once the needle was documented to be in the correct location, three specimens were obtained using the Mammotome biopsy s ystem. A clip was inserted into the biopsy cavity. A skin closure strip and a sterile dressing were applied to the access site. Post procedure digital mammographic imaging demonstrates the location d evice at the targeted area and partial removal of the abnormality. The specimens were sent to the [facility] for pathological analysis. IMPRESSION: ULTRASOUND GUIDED BIOPSY MALIGNANT Ultrasound guided biopsy of the 0.8 cm x 0.4 cm x 0.7 cm mass in the left axillary tail was successfu l with no apparent post procedure complications. Pathology demonstrates invasive ductal carcinoma. Pathology results are concordant with imaging findi ngs. A surgical/oncologic consultation is recommended. This exam was interpreted at Station ID: [id number]. Yves Sahu M.D., jr,slc/:06/06/2020 10:46:46 BI-RADS CATEGORY: () - Unspecified - other recall n/a LATERALITY: (B)
--- NOTE | 2020-06-06 11:12 | Ultrasound Report ---
ULTRASOUND GUIDED BIOPSY LEFT BREAST: 05/31/2020 CLINICAL: Left axillary node biopsy. PATIENT CONSENT: Risks (minor bleeding, infection, vasovagal reaction and repeat procedure), benefits and alternatives were explained to the patient and written informed consent was obtained. Correlation is made to exams dated: 05/31/2020 ultrasound biopsy, 05/23/2020 ultrasound, 05/23/2020 [facility] mogram, 08/04/2018 mammogram, 05/31/2020 mammogram, and 10/14/2017 mammogram - [facility]. An ultrasound guided biopsy using real-time ultrasound was performed for the lymph node located in th e left axillary tail. This was described on the previous ultrasound report. The skin was prepped in the usual manner. Local anesthetic was administered to the access site. A s kin deandra was made in the breast. The abnormality was approached from the lateral aspect. A 12 gauge biopsy needle was placed adjacent to the abnormality under ultrasound guidance. Once the needle was documented to be in the correct location, three specimens were obtained using a BARD biopsy device. A skin closure strip and a sterile dressing were applied to the access site. Post procedure imaging demonstrates the clip at the targeted area. The specimens were sent to the laboratory for pathologi lisa analysis. IMPRESSION: ULTRASOUND GUIDED BIOPSY MALIGNANT Ultrasound guided biopsy of the lymph node in the left axilla was successful with no apparent post pr ocedure complications. Pathology demonstrates invasive ductal carcinoma. Pathology results are concordant with imaging findi ngs. A surgical/oncologic consultation is recommended. This exam was interpreted at Station ID: [id number]. Yves Sahu M.D., jr,slc/:06/06/2020 10:47:59 BI-RADS CATEGORY: () - Unspecified - other recall n/a LATERALITY: (B)
== END 2020-05-31 12:33 | disposition home or self-care (01) ==
LOC: DI 12:32
PROVIDERS: ATTEND Internal Medicine Hematology & Oncology
DX: C96.9 Malignant neoplasm of lymphoid, hematopoietic and related tissue, unspecified (principal); C50.612 Malignant neoplasm of axillary tail of left female breast; Z17.0 Estrogen receptor positive status [ER+]
CPT/HCPCS: 19083; 38505

== ENCOUNTER 2020-07-17 08:00 | Outpatient (CLI) | payer MEDICARE | END 2020-07-17 23:59 | disposition home or self-care (01) | LOC: LAB.R 08:00 | PROVIDERS: ATTEND Physician Assistant Medical | DX: R21 Rash and other nonspecific skin eruption (principal); Z20.822 Contact with and (suspected) exposure to COVID-19 ==

== ENCOUNTER 2021-06-28 18:22 | Outpatient (CLI) | payer MEDICARE ==
[2021-06-28 19:19] LABS: ALBUMIN 3.3 g/dL (3.2-5.5); ALBUMIN/GLOBULIN RATIO 0.8 (1.0-2.2); BILIRUBIN,TOTAL 0.8 mg/dL (0.2-1.0); CALCIUM 9.1 mg/dL (8.5-10.3); POTASSIUM 3.1 mmol/L (3.5-5.0); TOTAL PROTEIN 7.6 g/dL (6.7-8.2)
== END 2021-06-28 18:23 | disposition home or self-care (01) ==
LOC: LAB 18:22
PROVIDERS: ATTEND Nurse Practitioner Family
DX: I48.0 Paroxysmal atrial fibrillation (principal); I95.9 Hypotension, unspecified; Z51.81 Encounter for therapeutic drug level monitoring
CPT/HCPCS: 36415; 80053; 83735

== ENCOUNTER 2021-07-24 16:53 | Outpatient (CLI) | payer MEDICARE ==
[2021-07-24 20:06] LABS: BASOPHILS % (AUTO) 0.4 %; EOSINOPHILS # (AUTO) 0.1 10^3/uL (0.0-0.7); EOSINOPHILS % (AUTO) 0.9 %; HCT - HEMATOCRIT 33.8 % (37.0-47.0); HGB - HEMOGLOBIN 10.5 g/dL (12.0-16.0); LYMPHOCYTES # (AUTO) 1.8 10^3/uL (1.5-3.5); LYMPHOCYTES % (AUTO) 17.7 %; MEAN CORPUSCULAR HEMOGLOBIN 28.5 pg (27.0-31.0); MEAN CORPUSCULAR HGB CONC 31.1 g/dL (32.0-36.0); MEAN CORPUSCULAR VOLUME 91.6 fL (81.0-99.0); MEAN PLATELET VOLUME 8.9 fL (7.9-10.8); MONOCYTES # (AUTO) 0.7 10^3/uL (0.0-1.0); MONOCYTES % (AUTO) 7.4 %; NEUTROPHILS # (AUTO) 7.2 10^3/uL (1.5-6.6); NEUTROPHILS % (AUTO) 73.3 %; PLT - PLATELET COUNT 394 10^3/uL (130-450); RED BLOOD COUNT 3.69 10^6/uL (4.20-5.40); RED CELL DISTRIBUTION WIDTH 14.2 % (12.0-15.0); WHITE BLOOD COUNT 9.9 x10^3/uL (4.8-10.8)
[2021-07-24 20:10] LABS: ALBUMIN 3.1 g/dL (3.2-5.5); ALBUMIN/GLOBULIN RATIO 0.6 (1.0-2.2); BILIRUBIN,TOTAL 0.4 mg/dL (0.2-1.0); CALCIUM 9.4 mg/dL (8.5-10.3); CREATININE 0.9 mg/dL (0.4-1.0); POTASSIUM 3.7 mmol/L (3.5-5.0); TOTAL PROTEIN 7.9 g/dL (6.7-8.2)
== END 2021-07-24 16:54 | disposition home or self-care (01) ==
LOC: LAB.S 16:53
PROVIDERS: ATTEND Nurse Practitioner Family
DX: E87.6 Hypokalemia (principal); C50.012 Malignant neoplasm of nipple and areola, left female breast
CPT/HCPCS: 36415; 80053; 82378; 85025; 86300

== ENCOUNTER 2021-08-14 10:43 | Outpatient (CLI) | payer MEDICARE ==
[2021-08-14 14:45] LABS: BASOPHILS # (AUTO) 0.1 10^3/uL (0.0-0.1); BASOPHILS % (AUTO) 0.7 %; EOSINOPHILS # (AUTO) 0.1 10^3/uL (0.0-0.7); EOSINOPHILS % (AUTO) 0.9 %; HCT - HEMATOCRIT 35.9 % (37.0-47.0); LYMPHOCYTES # (AUTO) 1.8 10^3/uL (1.5-3.5); LYMPHOCYTES % (AUTO) 24.3 %; MEAN CORPUSCULAR HEMOGLOBIN 28.4 pg (27.0-31.0); MEAN CORPUSCULAR HGB CONC 30.6 g/dL (32.0-36.0); MEAN CORPUSCULAR VOLUME 92.5 fL (81.0-99.0); MEAN PLATELET VOLUME 9.2 fL (7.9-10.8); MONOCYTES # (AUTO) 0.6 10^3/uL (0.0-1.0); MONOCYTES % (AUTO) 8.2 %; NEUTROPHILS # (AUTO) 4.9 10^3/uL (1.5-6.6); NEUTROPHILS % (AUTO) 65.4 %; PLT - PLATELET COUNT 329 10^3/uL (130-450); RED BLOOD COUNT 3.88 10^6/uL (4.20-5.40); RED CELL DISTRIBUTION WIDTH 16.2 % (12.0-15.0); WHITE BLOOD COUNT 7.5 x10^3/uL (4.8-10.8)
== END 2021-08-14 10:44 | disposition home or self-care (01) ==
LOC: LAB.S 10:43
PROVIDERS: ATTEND Internal Medicine Cardiovascular Disease
DX: R53.83 Other fatigue (principal)
CPT/HCPCS: 36415; 84443; 85025

== ENCOUNTER 2022-05-25 21:02 | Outpatient (CLI) | payer MEDICARE | END 2022-05-25 21:03 | disposition critical access hospital (66) | LOC: EMS 21:02 | DX: R09.89 Other specified symptoms and signs involving the circulatory and respiratory systems (principal); R53.83 Other fatigue; R05.9 Cough, unspecified | CPT/HCPCS: A0425; A0429 ==

== ENCOUNTER 2022-05-25 21:26 | Emergency (ER) | payer MEDICARE ==
--- NOTE | 2022-05-25 21:25 | ED Physician Documentation ---
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 Patient's family member went to give patient one of her medications and noted patient's tongue was blue. Another family member then checked patient's pulse ox using a finger pulse oximeter and the reading was in the mid-80s. Despite this , patient was in no distress and had not c/o difficulty breathing. The family member then used the pulse oximiter on her own finger with normal result. EMS then arrived, not noting any cyanosis peripherally nor discoloration of the tongue. however, there pulse oximeter had reading of 88%, correcting to 95% with 2 liters [place] oxygen. Patient has no baseline dyspnea nor oxygen requirement. No other interventions (aside from [place] oxygen) en route to ED. Patient is in NAD on arrival and denies any shortness of breath. She notes mild nonproductive cough. She notes left shoulder pain, gradual onset several weeks ago without inciting event (no injury), becoming more severe over past few days; this has been proportionally affecting her ROM (due to exacerbation of the pain with movement), and she began wearing a left shoulder sling within the past week. Review of Systems Constitutional: denies: Fever Cardiac: reports: Pedal edema (BLE swelling, chronic and attributed to lymphedema). denies: Chest pain / pressure, Palpitations Respiratory: reports: Cough (mild [employer] SCI[employer] IN[employer] cough over past few days). denies: Dyspnea, Hemoptysis, Wheezing GI: denies: Abdominal Pain, Nausea, Vomiting Musculoskeletal: reports: Extremity swelling (BLE>BUE, attributed to lymphedema). denies: Extremity pain PD PAST MEDICAL HISTORY - Past Medical History Past Medical History: Yes Endocrine/Autoimmune: HyPOthyroidism Other Past Medical History: breast cancer with metastases - Present Medications Home Medications: Ambulatory Orders Medication Instructions Recorded Confirmed Cholecalciferol [Vitamin D3] 5,000 unit PO DAILY 07/09/16 12/13/20 hydroCHLOROthiazide 12.5 mg PO DAILY 07/09/16 12/13/20 [Hydrochlorothiazide] Losartan [Cozaar] 50 mg PO DAILY 08/19/18 12/13/20 Metoprolol Succinate 25 mg PO DAILY #30 tab.er.24h 09/10/18 12/13/20 Levothyroxine Sodium [Synthroid] 50 mcg PO DAILY 06/28/20 12/13/20 Clobetasol Propionate [Impoyz] 60 gm TP BID PRN #60 g 07/12/20 12/13/20 Betamethasone Aug 0.05% Cream 1 applic EXT PRN PRN 08/02/20 12/13/20 [Diprolene AF 0.05% Cream] Letrozole 1 tab PO DAILY 08/02/20 12/13/20 - Allergies Allergies/Adverse Reactions: Allergies Allergy/AdvReac Type Severity Reaction Status Date / Time Penicillins Allergy Rash Verified 09/06/20 13:49 Sulfa (Sulfonamide Allergy Unknown Verified 09/06/20 13:49 Antibiotics) PD ED PE NORMAL - Vitals Vital signs reviewed: Yes - General General: Alert and oriented X 3, No acute distress, Well developed/nourished - HEENT HEENT: Moist mucous membranes (no perioral nor intraoral cyanosis including tongue) - Neck Neck: Supple, no meningeal sign - Cardiac Cardiac: RRR - Respiratory Respiratory: No respiratory distress, Clear bilaterally - Abdomen Abdomen: Soft, Non tender - Derm Derm: Normal color - Extremities Extremities: Other (2+ BLE edema, 1+ BUE edema. no cyanosis of toes , fingers with < 2 sec capillary refill) - Neuro Neuro: Alert and oriented X 3 Eye Opening: Spontaneous Motor: Obeys Commands Verbal: Oriented GCS Score: 15 PD ED PE EXPANDED - Cardiac Cardiac: Murmur Present (3/6 KB left second ICS) Results - Vitals Vitals: Oxygen O2 Source Room air - Labs Labs: Laboratory Tests 05/25/22 05/25/22 05/25/22 21:40 21:50 21:50 WBC 9.0 RBC 4.59 Hgb 13.2 Hct 43.1 MCV 93.9 MCH 28.8 MCHC 30.6 L RDW 14.8 Plt Count 261 MPV 9.9 Neut # (Auto) 6.1 Lymph # (Auto) 2.0 [place] # (Auto) 0.8 Eos # (Auto) 0.0 Baso # (Auto) 0.0 Absolute Nucleated RBC 0.00 Nucleated RBC % 0.0 Sodium 142 Potassium 3.9 Chloride 97 L Carbon Dioxide 34 H Anion Gap 11.0 BUN 37 H Creatinine 1.1 H Estimated GFR (MDRD) 47 L Glucose 143 H Calcium 12.6 H* Total Bilirubin 1.0 AST 177 H ALT 88 H Alkaline Phosphatase 259 H B-Natriuretic Peptide Total Protein 7.6 Albumin 3.8 Globulin 3.8 Albumin/Globulin Ratio 1.0 Lipase 912 H Nasal Adenovirus (PCR) NOT DETECTED Nasal B. parapertussis DNA (PCR) NOT DETECTED Nasal Coronavir 229E PCR NOT DETECTED Nasal Coronavir HKU1 PCR NOT DETECTED Nasal Coronavir NL63 PCR NOT DETECTED Nasal Coronavir OC43 PCR NOT DETECTED Nasal Enterovir/Rhinovir PCR NOT DETECTED Nasal Influenza B PCR NOT DETECTED Nasal Influenza A PCR NOT DETECTED Nasal Parainfluen 1 PCR NOT DETECTED Nasal Parainfluen 2 PCR NOT DETECTED Nasal Parainfluen 3 PCR NOT DETECTED Nasal Parainfluen 4 PCR NOT DETECTED Nasal RSV (PCR) NOT DETECTED Nasal B.pertussis DNA PCR NOT DETECTED Nasal C.pneumoniae (PCR) NOT DETECTED [place] Human Metapneumo PCR NOT DETECTED Nasal M.pneumoniae (PCR) NOT DETECTED Nasal SARS-CoV-2 (PCR) NOT DETECTED 05/25/22 21:50 WBC RBC Hgb Hct MCV MCH MCHC RDW Plt Count MPV Neut # (Auto) Lymph # (Auto) [place] # (Auto) Eos # (Auto) Baso # (Auto) Absolute Nucleated RBC Nucleated RBC % Sodium Potassium Chloride Carbon Dioxide Anion Gap BUN Creatinine Estimated GFR (MDRD) Glucose Calcium Total Bilirubin AST ALT Alkaline Phosphatase B-Natriuretic Peptide 76 Total Protein Albumin Globulin Albumin/Globulin Ratio Lipase Nasal Adenovirus (PCR) Nasal B. parapertussis DNA (PCR) Nasal Coronavir 229E PCR Nasal Coronavir HKU1 PCR Nasal Coronavir NL63 PCR Nasal Coronavir OC43 PCR Nasal Enterovir/Rhinovir PCR Nasal Influenza B PCR Nasal Influenza A PCR Nasal Parainfluen 1 PCR Nasal Parainfluen 2 PCR Nasal Parainfluen 3 PCR Nasal Parainfluen 4 PCR Nasal RSV (PCR) Nasal B.pertussis DNA PCR Nasal C.pneumoniae (PCR) Kings Human Metapneumo PCR Nasal M.pneumoniae (PCR) Nasal SARS-CoV-2 (PCR) - Rads (name of study) chest xray Radiology: Prelim report reviewed, See rad report left shoulder xrays Radiology: Prelim report reviewed, See rad report PD Medical Decision Making - ED course Complexity details: reviewed results, re-evaluated patient, considered differential, d/w patient, d/w family ED course: patient is in no respiratory distress on arrival nor throughout remainder of ED stay. On arrival, the 2 liters [place] oxygen is stopped. I then performed an exam and noted that her pulse oximetry readings would rapidly fluctuate from mid-90s on room air down to upper 80s and back to mid-90s. The pleth on the monitor appeared to be reliable and correlating with her telemetry cardiac monitoring; she did not have any symptoms despite these changes in readings. Notably, her p ulse ox dropped to upper 80s when I had her take deep breaths (for lung auscultation). ED RN then switched the location of the pulse oximeter location to patient's forehead and the pulse ox reading immediately read upper 90s-100% on room air with good, reliable pleth. Her pulse ox readings subsequently remained in upper 90s-100% for remainder of ED stay without supplemental oxygen. She has peripheral edema including of the fingers, although the fingertips are warm without discoloration and <2second capillary refill. It is unclear why her peripheral pulse ox readings were seemingly low on both home pulse ox as well as EMS pulse ox when the probe was on her finger. Labs ordered and results reviewed by me: CBC, ER abdominal panel, BNP, nasal respiratory PCR panel. Chest xray and left shoulder xrays also obtained and I reviewed these as well. BNP, CBC are normal. Mildly elevated BUN (37) and creatinine (1.1). AST/ALT are mildly elevated (177/88) as well as alkaline phosphatase (259). Lipase elevated (912). Calclium is high (12.6). No concerning / diagnostic findings on CXR. Left shoulder xrays show a minimally displaced scapular fracture at base of acromion as well as scattered sclerotic lesions c/w metastases; location of these lesions include the left proximal humerus, left scapula, and multiple ribs. Radiologist's interpretation indications these lesions are "redemonstrated" and cite bone scan from 06/24/20 for comparison. I discussed these results with patient and family member who is in ED at bedside. The clinical scenario regarding the left shoulder is pathologic fractu re due to underlying bony metastases. New and/or worsening bone metastases could also explain the hypercalcemia (elevated alkaline phosphatase raises this suspicion); at this time, further testing and/or treatment specific to the hypercalcemia can be deferred to outpatient setting. Although her lipase is significantly elevated, she has no abdominal pain nor tenderness and thus further testing from ED standpoint is not indicated at this time. I advised her to follow up with her primary care provider for reevaluation of these abnormalities, as well as with her hem/onc to discuss recommendations for further testing and potential treatments. I reviewed the most recent hem/onc note in [facility] from February 2021 which indicates that, at that time , her cancer was deemed incurable but had been responding to chemotherapy. Departure - Departure Disposition: Home, Self Care Clinical Impression: Hypercalcemia Pathologic scapular fracture Qualifiers: Encounter type: initial encounter Laterality: left Qualified Code(s): M84.412A - Pathological fracture, left shoulder, initial encounter for fracture Condition: Good Instructions: Hypercalcemia Dc, ED Fx Shoulder Comments: Your oxygen level (pulse ox) was normal during your ER stay once the location of the pulse oximeter was changed from your finger to your forehead. There are no concerning findings on the chest x-ray (such as pneumonia or masses); the radiologist does note findings on the chest x-ray that would be compatible with COPD. Note that the diagnosis of COPD, if not already established, cannot be determined based solely on chest x-ray. There does appear to be a minimally displaced fracture (break) of your left scapula. The scapula is part of the shoulder joint, and this would certainly explain the shoulder pain and limited range of motion that you have been experiencing. Also noted on the shoulder x-rays are scattered lesions in several bones (the left humerus, the left scapula, and a few of your ribs) that are suspicious for metastases. Regarding your blood tests, your CBC was essentially normal; this includes your white blood cell count and your red blood cell count. Your kidney function tests (BUN and creatinine) were mildly elevated. Your liver function tests (liver enzymes and alkaline phosphatase) were slightly elevated. As we discussed, your pancreatic enzyme (lipase) was particularly elevated; however, without any significant abdominal pain and/or abdominal tenderness, this is not a concerning finding and can be followed up with your primary care provider for reevaluation. Perhaps most notable on your blood tests is a high calcium level (12.6). As you do not have symptoms to correlate with a high calcium level at this time, no further testing or treatment is needed for this finding, but your primary care provider might want to recheck this lab result and/for 2 other tests to determine why your calcium level is high. Discharge Date/Time: 05/26/22 00:42
[2022-05-25] MEDS ORDERED: SODIUM CHLORIDE 0.9% 500 ML IV STA (21:51)
[2022-05-25 21:55] LABS: BASOPHILS % (AUTO) 0.4 %; EOSINOPHILS % (AUTO) 0.4 %; HCT - HEMATOCRIT 43.1 % (37.0-47.0); HGB - HEMOGLOBIN 13.2 g/dL (12.0-16.0); LYMPHOCYTES % (AUTO) 22.2 %; MEAN CORPUSCULAR HEMOGLOBIN 28.8 pg (27.0-31.0); MEAN CORPUSCULAR HGB CONC 30.6 g/dL (32.0-36.0); MEAN CORPUSCULAR VOLUME 93.9 fL (81.0-99.0); MEAN PLATELET VOLUME 9.9 fL (7.9-10.8); MONOCYTES # (AUTO) 0.8 10^3/uL (0.0-1.0); MONOCYTES % (AUTO) 9.1 %; NEUTROPHILS # (AUTO) 6.1 10^3/uL (1.5-6.6); NEUTROPHILS % (AUTO) 67.5 %; PLT - PLATELET COUNT 261 10^3/uL (130-450); RED BLOOD COUNT 4.59 10^6/uL (4.20-5.40); RED CELL DISTRIBUTION WIDTH 14.8 % (12.0-15.0)
[2022-05-25 22:28] LABS: TOTAL PROTEIN 7.6 g/dL (6.7-8.2)
[2022-05-25 22:29] LABS: ALBUMIN 3.8 g/dL (3.2-5.5); CREATININE 1.1 mg/dL (0.4-1.0); POTASSIUM 3.9 mmol/L (3.5-5.0)
[2022-05-25 22:30] LABS: CALCIUM 12.6 mg/dL (8.5-10.3)
--- NOTE | 2022-05-25 23:23 | XRAY Report ---
PROCEDURE: Chest 2 View X-Ray INDICATIONS: hypoxia TECHNIQUE: 2 views of the chest were acquired. COMPARISON: Chest x-ray 09/10/2018 FINDINGS: Surgical changes and devices: None. Lungs and pleura: No pleural effusions or pneumothorax. No acute air space opacities. There is hyper inflation of the lungs with flattening of the hemidiaphragms compatible with COPD. Mediastinum: Mediastinal contours are normal. Heart size is normal. Bones and chest wall: No suspicious bony abnormalities. Soft tissues appear unremarkable. IMPRESSION: 1. No acute cardiopulmonary disease. 2. Findings compatible with COPD. Reviewed by: Tad Lomeli MD on 05/25/2022 11:33 PM PST Approved by: Tad Lomeli MD on 05/25/2022 11:[address] [facility] Station ID: [id number]
--- NOTE | 2022-05-25 23:28 | XRAY Report ---
PROCEDURE: Shoulder 2 View LT INDICATIONS: left shoulder pain TECHNIQUE: 3 views of the shoulder were acquired. COMPARISON: Bone scan 06/24/2020. FINDINGS: Bones: There is a curvilinear lucency in the scapula along the base of the acromion consistent with a minimally displaced fracture of indeterminate acuity. There is moderate acromioclavicular joint dege neration. Visualized ribs appear intact. Scattered sclerotic lesions are demonstrated within the visu alized osseous structures including within the proximal left humerus, left scapula, and scattered rib s. Soft tissues: No suspicious soft tissue calcifications. IMPRESSION: 1. Minimally displaced fracture of the scapula of indeterminate acuity. 2. Scattered sclerotic lesions redemonstrated consistent with metastatic disease. Reviewed by: Tad Lomeli MD on 05/25/2022 11:36 PM PST Approved by: Tad Lomeli MD on 05/25/2022 11:36 PM PST Station ID: [id number]
[2022-05-26 00:39] LABS: B. PARAPERTUSSIS- RESP PCR PAN NOT DETECTED; B. PERTUSSIS- RESP PCR PANEL NOT DETECTED; C. PNEUMONIAE- RESP PCR PANEL NOT DETECTED; CORONAVIRUS 229E-RESP PCR NOT DETECTED; CORONAVIRUS HKU1-RESP PCR NOT DETECTED; CORONAVIRUS NL63-RESP PCR NOT DETECTED; CORONAVIRUS OC43-RESP PCR NOT DETECTED; HUMAN METAPNEUMOVIRUS NOT DETECTED; INFLUENZA A- RESP PCR PANEL NOT DETECTED; INFLUENZA B - RESP PCR PANEL NOT DETECTED; M. PNEUMONIAE- RESP PCR PANEL NOT DETECTED; PARAINFLUENZA VIRUS 1 NOT DETECTED; PARAINFLUENZA VIRUS 2 NOT DETECTED; PARAINFLUENZA VIRUS 3 NOT DETECTED; PARAINFLUENZA VIRUS 4 NOT DETECTED; RHINOVIRUS/ENTEROVIRUS NOT DETECTED; RSV- RESP PCR PANEL NOT DETECTED; SARS-CoV-2 -RESP PCR PANEL NOT DETECTED
[2022-05-26 00:44] VITALS: BP 143/63
== END 2022-05-26 00:42 | disposition home or self-care (01) ==
LOC: EDUNIT# → ED 21:26
DX: E83.52 Hypercalcemia (principal); M84.412A Pathological fracture, left shoulder, initial encounter for fracture; R60.0 Localized edema; M89.9 Disorder of bone, unspecified; Z85.3 Personal history of malignant neoplasm of breast; Z20.822 Contact with and (suspected) exposure to COVID-19
CPT/HCPCS: 36415; 80053; 83690; 83880; 85025; 87633; 96360; 99284

== ENCOUNTER 2022-05-30 10:56 | Emergency (ER) | payer MEDICARE ==
[2022-05-30 11:23] LABS: BASOPHILS % (AUTO) 0.6 %; EOSINOPHILS % (AUTO) 0.4 %; HCT - HEMATOCRIT 40.9 % (37.0-47.0); HGB - HEMOGLOBIN 12.8 g/dL (12.0-16.0); LYMPHOCYTES # (AUTO) 1.3 10^3/uL (1.5-3.5); LYMPHOCYTES % (AUTO) 19.1 %; MEAN CORPUSCULAR HEMOGLOBIN 29.3 pg (27.0-31.0); MEAN CORPUSCULAR HGB CONC 31.3 g/dL (32.0-36.0); MEAN CORPUSCULAR VOLUME 93.6 fL (81.0-99.0); MEAN PLATELET VOLUME 9.5 fL (7.9-10.8); MONOCYTES # (AUTO) 0.6 10^3/uL (0.0-1.0); MONOCYTES % (AUTO) 8.3 %; NEUTROPHILS # (AUTO) 4.9 10^3/uL (1.5-6.6); NEUTROPHILS % (AUTO) 71.3 %; PLT - PLATELET COUNT 253 10^3/uL (130-450); RED BLOOD COUNT 4.37 10^6/uL (4.20-5.40); WHITE BLOOD COUNT 6.9 x10^3/uL (4.8-10.8)
[2022-05-30 11:41] LABS: ALBUMIN 3.2 g/dL (3.2-5.5); ALBUMIN/GLOBULIN RATIO 0.7 (1.0-2.2); BILIRUBIN,TOTAL 1.2 mg/dL (0.2-1.0); CREATININE 1.2 mg/dL (0.4-1.0); POTASSIUM 3.8 mmol/L (3.5-5.0); TOTAL PROTEIN 7.7 g/dL (6.7-8.2)
[2022-05-30 11:43] LABS: CALCIUM 12.9 mg/dL (8.5-10.3)
--- NOTE | 2022-05-30 12:42 | ED Physician Documentation ---
PD HPI NVD - Stated complaint Stated Complaint: FATIGUE/NOT EATING - Chief complaint Chief Complaint: Abd Pain - History obtained from History obtained from: Patient - History of Present Illness Timing - onset: How many days ago (has had general weakness along with dyspnea for days to weeks. Has been ongoing treatment for breast cancer with bony mets. Recently seen in ER for shoulder pain and Dx with scapular pathologic fracture from bony met. Noted to have moderately elevated Calcium of 12.6. Instructed to follow up Onc.) Timing - details: Gradual onset, Still present Associated symptoms: Loss of appetite. No: Fever, Abdominal pain, Near syncope / syncope Contributing factors: Other (breast cancer with bony mets.). No: Sick contact Similar symptoms before: Has not had sx before Recently seen: Clinic, Emergency Dept Review of Systems Constitutional: denies: Fever Nose: denies: Rhinorrhea / runny nose, Congestion Throat: denies: Sore throat Cardiac: denies: Palpitations Respiratory: reports: Dyspnea. denies: Cough GI: reports: Nausea, Constipation. denies: Abdominal Pain, Vomiting : reports: Hesitancy. denies: Dysuria Neurologic: reports: Generalized weakness. denies: Altered mental status, Headache PD PAST MEDICAL HISTORY - Past Medical History Cardiovascular: Hypertension Respiratory: None Endocrine/Autoimmune: HyPOthyroidism, Other (breast cancer with bony mets, getting palliative chemo to control sprea/symptoms. To start RT in next couple of weeks. 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, Tubal ligation HEENT: Cataracts - Present Medications Home Medications: Ambulatory Orders Medication Instructions Recorded Confirmed Cholecalciferol [Vitamin D3] 5,000 unit PO DAILY 07/09/16 12/13/20 hydroCHLOROthiazide 12.5 mg PO DAILY 07/09/16 12/13/20 [Hydrochlorothiazide] Losartan [Cozaar] 50 mg PO DAILY 08/19/18 12/13/20 Metoprolol Succinate 25 mg PO DAILY #30 tab.er.24h 09/10/18 12/13/20 Levothyroxine Sodium [Synthroid] 50 mcg PO DAILY 06/28/20 12/13/20 Clobetasol Propionate [Impoyz] 60 gm TP BID PRN #60 g 07/12/20 12/13/20 Betamethasone Aug 0.05% Cream 1 applic EXT PRN PRN 08/02/20 12/13/20 [Diprolene AF 0.05% Cream] Letrozole 1 tab PO DAILY 08/02/20 12/13/20 - Allergies Allergies/Adverse Reactions: Allergies Allergy/AdvReac Type Severity Reaction Status Date / Time Penicillins Allergy Rash Verified 09/06/20 13:49 Sulfa (Sulfonamide Allergy Unknown Verified 09/06/20 13:49 Antibiotics) amiodarone AdvReac Edema Verified 05/30/22 11:12 - Social History Does the pt smoke?: No Smoking Status: Never smoker Does the pt drink ETOH?: No Does the pt have substance abuse?: No PD ED PE NORMAL - Vitals Vital signs reviewed: Yes - General General: Alert and oriented X 3, Well developed/nourished, Other (somewaht pale. ) - HEENT HEENT: Pharynx benign - Neck Neck: Supple, no meningeal sign, No adenopathy - Cardiac Cardiac: RRR, No murmur - Respiratory Respiratory: Clear bilaterally - Abdomen Abdomen: Normal bowel sounds, Soft, Non distended, No organomegaly - Derm Derm: Warm and dry. No: Normal color (pale) - Extremities Extremities: No calf tenderness / cord (mild 1+ edema in both lower legs. ), Other (marked lymphedema left total arm. Right arm with guarded roM due to pain in the right scapula. ) - Neuro Neuro: Alert and oriented X 3, No motor deficit, No sensory deficit, Normal speech Results - Vitals Vitals: Vital Signs - 24 hr 05/30/22 05/30/22 05/30/22 11:03 13:00 15:00 Temperature 36.5 C Heart Rate 99 103 H 87 Respiratory 18 17 16 Rate Blood Pressure 145/69 H 147/70 H 156/83 H O2 Saturation 93 92 100 Oxygen O2 Source Room air - Labs Labs: Laboratory Tests 05/30/22 05/30/22 05/30/22 11:19 11:19 11:19 WBC 6.9 RBC 4.37 Hgb 12.8 Hct 40.9 MCV 93.6 MCH 29.3 MCHC 31.3 L RDW 15.0 Plt Count 253 MPV 9.5 Neut # (Auto) 4.9 Lymph # (Auto) 1.3 L Barren # (Auto) 0.6 Eos # (Auto) 0.0 Baso # (Auto) 0.0 Absolute Nucleated RBC 0.00 Nucleated RBC % 0.0 VBG pH Ionized Calcium Sodium 140 Potassium 3.8 Chloride 95 L Carbon Dioxide 30 Anion Gap 15.0 H BUN 42 H Creatinine 1.2 H Estimated GFR (MDRD) 43 L Glucose 101 H Calcium 12.9 H* Phosphorus 3.2 Magnesium 2.1 Total Bilirubin 1.2 H AST 108 H ALT 69 H Alkaline Phosphatase 274 H Total Protein 7.7 Albumin 3.2 Globulin 4.5 H Albumin/Globulin Ratio 0.7 L Lipase 56 H Urine Color Urine Clarity Urine pH Ur Specific Twilight Urine Protein Urine Glucose (UA) Urine Ketones Urine Occult Blood Urine Nitrite Urine Bilirubin Urine Urobilinogen Ur Leukocyte Esterase Ur Microscopic Review Urine Culture Comments 05/30/22 05/30/22 12:59 13:53 WBC RBC Hgb Hct MCV MCH MCHC RDW Plt Count MPV Neut # (Auto) Lymph # (Auto) Barren # (Auto) Eos # (Auto) Baso # (Auto) Absolute Nucleated RBC Nucleated RBC % VBG pH 7.463 H Ionized Calcium 1.54 H* Sodium Potassium Chloride Carbon Dioxide Anion Gap BUN Creatinine Estimated GFR (MDRD) Glucose Calcium Phosphorus Magnesium Total Bilirubin AST ALT Alkaline Phosphatase Total Protein Albumin Globulin Albumin/Globulin Ratio Lipase Urine Color YELLOW Urine Clarity CLEAR Urine pH 6.0 Ur Specific Twilight >=1.030 H Urine Protein NEGATIVE Urine Glucose (UA) NEGATIVE Urine Ketones 15 H Urine Occult Blood NEGATIVE Urine Nitrite NEGATIVE Urine Bilirubin NEGATIVE Urine Urobilinogen 0.2 (NORMAL) Ur Leukocyte Esterase NEGATIVE Ur Microscopic Review NOT INDICATED Urine Culture Comments NOT INDICATED PD Medical Decision Making - ED course Complexity details: reviewed old records (lab values from recent lab draw, in comparison to today's labs. ), reviewed results (patient with recent labs showing elevated Calcium at medium high level. She talked with her Oncology office and referred to ER to get Calcium treated due to patient feeling confused/tired/some cramping/ constipated. ), re-evaluated patient (she is feeling more energetic and appears alert and brighter after iV fluids and initial treatment. ), considered differential, d/w patient, d/w family (polo who is a main caregiver for the patient. ), d/w golf tournament consultant (Talked with Dr. Garner, [facility]. He agreed with the treatments already given. Did not direct any outpt/oral meds. ) Reviewed Lab Results: has elevated calcium at 12.9 Creatinine comparable to prior (1.2 now with last 1.1). Other lytes are okay. Phosphorus is normal. She has cancer with bony mets, so not really needing to work up the hypercalcemia (unlikely to be parathyroid disorder/etc). Drug Therapy Requiring Monitoring for Toxicity: the patient given IV fluids, and Lasix IV to drive out some calcium. Howeve to really lower it, was given calcium binder Zoledronic acid. We do not stock iv calcitonin, and referencing [employer], the nasal calcitonin is not effective for hypercalcemia. Departure - Departure Disposition: 01 Home, Self Care Clinical Impression: Altered mental status, Dehydration, Serum calcium elevated, Breast cancer metastasized to bone Condition: Stable Record reviewed to determine appropriate education?: Yes Follow-Up: RENA CONNER MD [Primary Care Provider] - HEATHER FRENCH MD [Physician No Access] - Comments: Encourage frequent fluids to try to maintain good hydration at home. Continue your other usual medications. Contact your oncologist office for further guidance. I talked with the on-call oncologist and they would like your blood test rechecked in a couple of days. I wrote a order should for that. Return to the ER as needed. Discharge Date/Time: 05/30/22 16:54
[2022-05-30 13:05] LABS: GLUCOSE, URINE (UA) NEGATIVE (NEGATIVE); KETONES,URINE (UA) 15 mg/dL (NEGATIVE); LEUKOCYTE ESTERASE, URINE NEGATIVE (NEGATIVE); NITRITE,URINE NEGATIVE (NEGATIVE); OCCULT BLOOD,URINE NEGATIVE (NEGATIVE); PROTEIN,URINE NEGATIVE (NEGATIVE); UROBILINOGEN,URINE 0.2 (NORMAL) E.U./dL (NORMAL)
[2022-05-30 13:12] LABS: BILIRUBIN,URINE NEGATIVE (NEGATIVE); CLARITY,URINE CLEAR (CLEAR); ICTOTEST,URINE NEGATIVE
[2022-05-30] MEDS ORDERED: SODIUM CHLORIDE 0.9% 1,000 ML IV STA (13:16)
[2022-05-30] MEDS ORDERED: FUROSEMIDE 20 MG/2 ML VIAL IVP STA (13:17)
[2022-05-30] MEDS ORDERED: ZOLEDRONIC ACID 4 MG/5 ML VIAL IV ONE (13:30)
[2022-05-30 13:32] LABS: MAGNESIUM 2.1 mg/dL (1.7-2.8); PHOSPHORUS 3.2 mg/dL (2.5-4.6)
[2022-05-30] MEDS ORDERED: ZOLEDRONIC ACID 4 MG/100 ML 4 MG/100 ML BAG IV STA (13:35)
[2022-05-30 14:09] LABS: VBG PH 7.463 (7.31-7.41)
[2022-05-30 14:11] LABS: CALCIUM, IONIZED 1.54 mmol/L (1.15-1.33)
[2022-05-30 15:11] VITALS: BP 156/83
== END 2022-05-30 16:54 | disposition home or self-care (01) ==
LOC: ED 10:56
DX: E83.52 Hypercalcemia (principal); E86.0 Dehydration; R41.82 Altered mental status, unspecified; C50.919 Malignant neoplasm of unspecified site of unspecified female breast; C79.51 Secondary malignant neoplasm of bone
CPT/HCPCS: 36415; 80053; 81001; 81003; 82330; 83690; 83735; 84100; 85025; 87086; 96365; 96375; 99284

== ENCOUNTER 2022-06-28 13:24 | Outpatient (CLI) | payer MEDICARE | END 2022-06-28 22:09 | disposition critical access hospital (66) | LOC: EMS 13:24 | DX: R53.1 Weakness (principal); R63.0 Anorexia; R11.0 Nausea; R53.83 Other fatigue; R26.2 Difficulty in walking, not elsewhere classified | CPT/HCPCS: A0425; A0429 ==

== ENCOUNTER 2022-06-28 14:15 | Emergency (ER) | payer MEDICARE ==
[2022-06-28] MEDS ORDERED: SODIUM CHLORIDE 0.9% 1,000 ML IV STA (14:33)
[2022-06-28] MEDS ORDERED: DEXAMETHASONE 10 MG/ML VIAL IVP STA (14:33)
[2022-06-28] MEDS ORDERED: ONDANSETRON 4 MG/2 ML VIAL IVP STA (14:33)
[2022-06-28] MEDS ORDERED: NYSTATIN 500000 UNITS/5 ML UDC PO STA (14:39)
--- NOTE | 2022-06-28 14:39 | ED Physician Documentation ---
History of Present Illness - Stated complaint Stated Complaint: GEN WEAKNESS - Chief complaint Chief Complaint: General - History obtained from History obtained from: Patient - Additonal information Additional information: This is an 86-year-old woman with history of metastatic breast cancer to multiple sites of bone. Initially started on Ibrance and letrozole. She discontinued Ibrance due to side effects. She started Faslodex last month. Now she is dealing with very poor appetite, nausea, hypercalcemia for which she got a second dose of Zometa a few days ago. She has not had a bowel movement in about 4 days and she is just generally terribly weak. They added ribociclib and fulvestrant a couple of days ago. She just started steroids but it a dose of prednisone 5 mg for appetite. She is not in any pain per se. Independent history taken from EMS as well as the granddaughter at the bedside who is very familiar with her recent past medical care. 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, Tubal ligation HEENT: Cataracts - Present Medications Home Medications: Ambulatory Orders Medication Instructions Recorded Confirmed Cholecalciferol [Vitamin D3] 5,000 unit PO DAILY 07/09/16 06/26/22 hydroCHLOROthiazide 12.5 mg PO DAILY 07/09/16 06/26/22 [Hydrochlorothiazide] Losartan [Cozaar] 50 mg PO DAILY 08/19/18 06/26/22 Metoprolol Succinate 25 mg PO DAILY #30 tab.er.24h 09/10/18 06/26/22 Levothyroxine Sodium [Synthroid] 50 mcg PO DAILY 06/28/20 06/26/22 Clobetasol Propionate [Impoyz] 60 gm TP BID PRN #60 g 07/12/20 06/26/22 Betamethasone Aug 0.05% Cream 1 applic EXT PRN PRN 08/02/20 06/26/22 [Diprolene AF 0.05% Cream] Letrozole 1 tab PO DAILY 08/02/20 06/26/22 Ondansetron [Zuplenz] 4 mg PO PRN PRN 06/26/22 06/26/22 Rivaroxaban [Xarelto] 20 mg PO DAILY PM 06/26/22 06/26/22 Nystatin [Mycostatin] 5 ml PO QID #280 ml 06/28/22 dexAMETHasone [Decadron] 4 mg PO BIDWM #14 tablet 06/28/22 - Allergies Allergies/Adverse Reactions: Allergies Allergy/AdvReac Type Severity Reaction Status Date / Time Penicillins Allergy Rash Verified 09/06/20 13:49 Sulfa (Sulfonamide Allergy Unknown Verified 09/06/20 13:49 Antibiotics) amiodarone AdvReac Edema Verified 05/30/22 11:12 - Social History Does the pt smoke?: No Smoking Status: Former smoker Does the pt drink ETOH?: No Does the pt have substance abuse?: No PD ED PE NORMAL - Vitals Vital signs reviewed: Yes - General General: Alert and oriented X 3, Other (Appears tired) - HEENT HEENT: Other (Dry mucous membranes with some thrush) - Neck Neck: Supple, no meningeal sign, No bony TTP - Cardiac Cardiac: RRR, No murmur - Respiratory Respiratory: No respiratory distress, Clear bilaterally - Abdomen Abdomen: Normal bowel sounds, Soft, Non tender - Back Back: No CVA TTP, No spinal TTP - Derm Derm: Normal color, Warm and dry - Extremities Extremities: No edema, No calf tenderness / cord - Neuro Neuro: Alert and oriented X 3, Normal speech Results - Vitals Vitals: Vital Signs - 24 hr 06/28/22 06/28/22 06/28/22 14:23 16:27 18:00 Temperature 36.6 C Heart Rate 92 86 93 Respiratory 18 18 24 Rate Blood Pressure 135/69 H 132/66 H 150/72 H O2 Saturation 95 98 93 If not protocol 2 : Oxygen Flow, liters/minute Oxygen O2 Source Room air - Labs Labs: Laboratory Tests 06/28/22 06/28/22 06/28/22 15:18 15:18 15:18 WBC 6.7 RBC 4.06 L Hgb 12.4 Hct 39.1 MCV 96.3 MCH 30.5 MCHC 31.7 L RDW 19.2 H Plt Count 137 MPV 9.8 Neut # (Auto) 5.4 Lymph # (Auto) 0.8 L Martin # (Auto) 0.5 Eos # (Auto) 0.0 Baso # (Auto) 0.0 Absolute Nucleated RBC 0.00 Nucleated RBC % 0.0 VBG pH 7.396 Ionized Calcium 1.47 H Sodium 138 Potassium 4.0 Chloride 98 L Carbon Dioxide 21 Anion Gap 19.0 H BUN 33 H Creatinine 0.9 Estimated GFR (MDRD) 60 L Glucose 73 Calcium 11.5 H Phosphorus 2.1 L Magnesium 2.2 Total Bilirubin 2.1 H AST 196 H ALT 68 H Alkaline Phosphatase 344 H Total Protein 6.6 L Albumin 2.8 L Globulin 3.8 Albumin/Globulin Ratio 0.7 L - Rads (name of study) CT of the abdomen pelvis showing multiple hepatic metastases and osseous metastases, inguinal adenopathy, left adrenal nodule, and wedging of T11 Radiology: Final report received, EMP read indepedently CT of the chest shows worsening metastatic disease with an anterior mediastinal mass measuring 2.9 cm, 4.3 cm left axillary mass, extensive osseous me Radiology: Final report received, EMP read indepedently PD Medical Decision Making - ED course ED course: 86-year-old woman with metastatic breast cancer presents with weakness, dehyd ration, poor appetite. She has known hypercalcemia and recently got a second dose of Zometa. And a note looking at prior labs that she recently has had worsening liver enzymes, possibly an obstructive pattern. She has not yet started the ribociclib. Fulvestrant does have a side effect of hepatotoxicity, also have to worry about metastatic lymphadenopathy causing biliary obstruction. She has thrush and clinical evidence of dehydration. We will do a CT of the chest abdomen pelvis given the worsening liver enzymes and weakness. She will need some pain medication prior to that as she has trouble laying flat due to pathologic fractures in her back. She has thrush and will treat with nystatin. 86-year-old woman with metastatic and worsening breast cancer now with liver metastases. Her calcium and renal function is improving but her symptomatology is worsening. I suspect this is due to the cancer burden itself. I had a long discussion with the patient, her daughter and granddaughter. She would prefer to go home but I will email the [facility] clinical educator to try to expedite her next appointment, she would also like to have a hospice referral. Departure - Departure Disposition: 01 Home, Self Care Clinical Impression: Thrush, Breast cancer metastasized to bone, Hepatic metastases Condition: Good Record reviewed to determine appropriate education?: Yes Prescriptions: dexAMETHasone [Decadron] 4 mg PO BIDWM #14 tablet Nystatin [Mycostatin] 5 ml PO QID #280 ml Comments: As discussed, her calcium and renal function is improving but her cancer has spread with involvement of the liver and mediastinum. I have emailed the [facility] clinical educator to try to expedite your appointment and also put in a hospice referral. Return for new or worsening symptoms or uncontrolled symptoms.
[2022-06-28] MEDS ORDERED: fentaNYL 100 MCG/2 ML VIAL IVP STA (14:48)
[2022-06-28 15:25] LABS: BASOPHILS % (AUTO) 0.1 %; HCT - HEMATOCRIT 39.1 % (37.0-47.0); HGB - HEMOGLOBIN 12.4 g/dL (12.0-16.0); LYMPHOCYTES # (AUTO) 0.8 10^3/uL (1.5-3.5); LYMPHOCYTES % (AUTO) 11.4 %; MEAN CORPUSCULAR HEMOGLOBIN 30.5 pg (27.0-31.0); MEAN CORPUSCULAR HGB CONC 31.7 g/dL (32.0-36.0); MEAN CORPUSCULAR VOLUME 96.3 fL (81.0-99.0); MEAN PLATELET VOLUME 9.8 fL (7.9-10.8); MONOCYTES # (AUTO) 0.5 10^3/uL (0.0-1.0); NEUTROPHILS # (AUTO) 5.4 10^3/uL (1.5-6.6); NEUTROPHILS % (AUTO) 80.8 %; PLT - PLATELET COUNT 137 10^3/uL (130-450); RED BLOOD COUNT 4.06 10^6/uL (4.20-5.40); RED CELL DISTRIBUTION WIDTH 19.2 % (12.0-15.0); WHITE BLOOD COUNT 6.7 x10^3/uL (4.8-10.8)
[2022-06-28 15:34] LABS: CALCIUM, IONIZED 1.47 mmol/L (1.15-1.33); VBG PH 7.396 (7.31-7.41)
[2022-06-28 15:41] LABS: ALBUMIN 2.8 g/dL (3.2-5.5); ALBUMIN/GLOBULIN RATIO 0.7 (1.0-2.2); BILIRUBIN,TOTAL 2.1 mg/dL (0.2-1.0); CALCIUM 11.5 mg/dL (8.5-10.3); CREATININE 0.9 mg/dL (0.4-1.0); MAGNESIUM 2.2 mg/dL (1.7-2.8); PHOSPHORUS 2.1 mg/dL (2.5-4.6); TOTAL PROTEIN 6.6 g/dL (6.7-8.2)
[2022-06-28] MEDS ORDERED: iohexoL-300 100 ML VIAL ONE ×2 (15:43→15:49)
[2022-06-28] MEDS ORDERED: iohexoL-300 100 ML VIAL IVP ONE (16:06)
--- NOTE | 2022-06-28 16:25 | CT Report ---
PROCEDURE: ABDOMEN/PELVIS W INDICATIONS: IV only, brca, worse liver enz, weak CONTRAST: 100mL Omni 300 TECHNIQUE: After the administration of intravenous contrast, 5 mm thick sections acquired from the diaphragms to the symphysis. 5 mm thick coronal and sagittal reformats were acquired. For radiation dose reducti on, the following was used: automated exposure control, adjustment of mA and/or kV according to moy ent size. COMPARISON: CT dated 06/24/2020 FINDINGS: Image quality: Excellent. ABDOMEN: Lung bases: Lung bases are clear. Heart size is normal. Solid organs: Liver is enlarged and demonstrates a nodular contour. Multifocal ill-defined heterogen eous low-density lesions are seen within the right and left hepatic lobes, largest of which is in the right hepatic lobe posterior medially, spanning roughly 56 mm. Gallbladder is surgically absent Chele iary system is non dilated. Pancreas enhances normally. No change in left adrenal nodule measuring r oughly 12 mm diameter. No right adrenal nodules. Kidneys demonstrate normal size and enhancement, wit hout hydronephrosis. Peritoneum and bowel: Bowel loops demonstrate normal wall thickness and caliber. No free fluid or a ir. Nodes and vessels: No retroperitoneal or mesenteric adenopathy by size criteria. Aorta and inferior vena cava are normal in size. Miscellaneous: No ventral hernias. PELVIS: Genitourinary: Bladder wall thickness is normal. Left posterior uterine fibroid measuring roughly 4 0 mm, as before. Miscellaneous: Left iliac chain adenopathy measuring roughly 9 mm short axis. Bones: Multifocal sclerotic lesions within the thoracolumbar spine, pelvis, and proximal femora bilat erally. There is new mild wedging of T11 of uncertain acuity.. IMPRESSION: 1. No acute process. 2. Multifocal hepatic metastatic disease. 3. Multifocal osseous metastases. 4. Left inguinal adenopathy. 5. Indeterminate left adrenal nodule. 6. Mild wedging of T11, of uncertain acuity. This could be further assessed with MRI, if clinically i ndicated. Reviewed by: Tarik Cabrera MD on 06/28/2022 4:24 PM PST Approved by: Tarik Cabrera MD on 06/28/2022 4:24 PM PST Station ID: [id number]
--- NOTE | 2022-06-28 17:01 | CT Report ---
PROCEDURE: CHEST W INDICATIONS: IV only, brca, worse liver enz, weak CONTRAST:100mL Omni 300 TECHNIQUE: After the administration of intravenous contrast, 1 mm axial images were acquired from the pulmonary apices through the posterior costophrenic angles. Axial 5 mm soft tissue kernel reconstructions were performed as well as 8 mm axial MIP and coronal and sagittal 5 mm reformations. For radiation dose reduction, the following was used: automated exposure control, adjustment of mA and/or kV according to patient size. COMPARISON: Same day CT abdomen and pelvis. CT chest 06/24/2020. FINDINGS: Image quality: Excellent. Lungs and pleura: No acute air space opacities. Right lower lobe pulmonary nodule measuring 0.2 cm. No pleural effusions or pneumothorax. Central and peripheral airways are patent and normal in calib er. Mediastinum: Anterior mediastinal mass measuring 2.9 x 2.7 cm, (06/25), new or substantially enlarged compared to 202. Heart size is normal. No pericardial effusion. Pulmonary arteries are prominent. Left pulmonary artery measures 3.1 cm. Esophagus is normal in caliber. No hiatal hernia. Bones and chest wall: Left pectoral or axillary mass measuring 4.3 x 3.5 cm, (06/24), previously 4.5 x 3.3 cm. Several left axillary metastatic lymph nodes which are decreased compared to 202. Left inf erior lateral breast nodule measuring 1.4 cm, (235). Left breast skin thickening. No enlarged right axillary nodes. Numerous sclerotic osseous lesions, new compared to 2021. A few lytic lesions. For ex ample right scapula. Mild height loss at T11. Abdomen: Ill-defined hypodensity in the liver. Suspect metastases. Postcholecystectomy. Left adrenal nodule measuring 1.3 cm, previously 1.3 cm. IMPRESSION: 1. Worsening metastatic disease. 2. Anterior mediastinal mass measuring 2.9 cm, new or substantially enlarged. 3. Left axillary mass measuring 4.3 cm is similar in size. Left axillary nodes are slightly decrease in size. Left inferior lateral breast lesion, new. 4. Ill-defined hepatic metastases. 5. Extensive osseous metastatic disease. Majority of lesions are sclerotic. Reviewed by: Rian Sahu MD on 06/28/2022 5:00 PM PST Approved by: Rian Sahu MD on 06/28/2022 5:00 PM PST Station ID: [id number]
[2022-06-28 18:01] VITALS: BP 150/72
== END 2022-06-28 19:39 | disposition home or self-care (01) ==
LOC: EDUNIT# → ED 14:15
DX: B37.9 Candidiasis, unspecified (principal); C50.919 Malignant neoplasm of unspecified site of unspecified female breast; C78.7 Secondary malignant neoplasm of liver and intrahepatic bile duct; C79.51 Secondary malignant neoplasm of bone; I10 Essential (primary) hypertension; E03.9 Hypothyroidism, unspecified; Z79.899 Other long term (current) drug therapy; Z79.01 Long term (current) use of anticoagulants; Z87.891 Personal history of nicotine dependence
CPT/HCPCS: 36415; 71260; 74177; 80053; 82330; 83735; 84100; 85025; 93005; 96361; 96374; 99284; A9270; Q9967

== ENCOUNTER 2022-06-28 19:38 | Outpatient (CLI) | payer MEDICARE | END 2022-06-28 19:39 | disposition home or self-care (01) | LOC: EMS 19:38 | PROVIDERS: ATTEND Emergency Medicine | DX: Z51.5 Encounter for palliative care (principal); R53.1 Weakness; Z74.01 Bed confinement status | CPT/HCPCS: A0425; A0428 ==